=== PATIENT | female | born 1965 | race Caucasian/White ===

== ENCOUNTER 2016-07-28 12:30 | Day surgery (SDC) | payer OTHER ==
[2016-07-26 09:56] VITALS: BMI 32.9
[~2016-07-28 12:30] MED LIST: LACTATED RINGERS 1,000 ML IV SCH; LIDOCAINE 1% 20 ML VIAL (10MG/ML) FOR IV START INTRADERMA PRN
[2016-07-28 12:57] VITALS: TEMP 97.5
[2016-07-28] MEDS ORDERED: fentaNYL (PF) 50 MCG/ML 2 ML AMP ONE (13:24)
[2016-07-28] MEDS ORDERED: MIDAZOLAM 2 MG/2 ML VIAL ONE (13:24)
[2016-07-28] MEDS ORDERED: PROPOFOL 10 MG/ML 20 ML VIAL IV ONE (13:24)
[2016-07-28 13:42] VITALS: RESP 18
--- NOTE | 2016-07-28 13:43 | P.PCN ---
Date of Procedure: 07/28/16 Procedure(s) Performed: BRIEF HISTORY: Patient is a 51-year-old, pleasant, white female, scheduled for an upper endoscopy as a part of evaluation of epigastric pain, worsening heartburn, nausea and vomiting for the last 6 months duration. She is on Prilosec 40 mg daily and despite which remains symptomatic. She is hence scheduled for an upper endoscopy to evaluate further. Her last upper endoscopy was 3 years ago and was noted to have short segment Ríos's esophagus. PROCEDURE PERFORMED: Esophagogastroduodenoscopy with biopsy. PREOPERATIVE DIAGNOSIS: Severe epigastric pain and heartburn. IV sedation per anesthesia. PROCEDURE: After informed consent was obtained, the patient was brought into the endoscopy unit. IV sedation was administered by Anesthesia under continuous monitoring. Initially the Olympus GIF-140 video endoscope was inserted into the mouth. Esophagus intubated without any difficulty. It was gradually advanced into the stomach and duodenum and carefully examined. The bulb and the second part of the duodenum appeared normal. The scope at this time was withdrawn to the stomach, adequately insufflated with air, and upon careful examination, mucosa of the antrum, had mild gastritis and this was biopsied. The body, cardia and the fundus appeared normal. The scope was then withdrawn into the esophagus. The GE junction was located at 39 cm from the incisors. There were 2 small tongues of Ríos's appearing mucosa just proximal to the GE junction and this was biopsied. The esophagus appeared normal. There were no erosions or ulcerations seen and the patient tolerated the procedure well. IMPRESSION: 1. Short segment Ríos's esophagus but no evidence of esophagitis.. 2. Mild antral gastritis. RECOMMENDATIONS: The findings of this examination were discussed with the patient as well as a family. She was advised to follow with the biopsy results. She'll be seen in the office in one to 2 weeks. In the meantime she will continue with Prilosec 40 mg daily and follow antireflux measures..
[2016-07-28 13:58] VITALS: BP 99/70; PULSE 65
== END 2016-07-28 14:12 | disposition home or self-care (01) ==
LOC: ORWHC2ENDO 12:30
PROVIDERS: ATTEND Internal Medicine Gastroenterology
DX: K21.0 Gastro-esophageal reflux disease with esophagitis (principal); K29.50 Unspecified chronic gastritis without bleeding; J45.909 Unspecified asthma, uncomplicated; F39 Unspecified mood [affective] disorder; Z79.51 Long term (current) use of inhaled steroids; Z79.899 Other long term (current) drug therapy; Z90.710 Acquired absence of both cervix and uterus; Z88.6 Allergy status to analgesic agent
CPT/HCPCS: 88305; 88342; 43239; J2250; J3010; J2704

== ENCOUNTER → 2016-08-09 | Outpatient (CLI) | payer OTHER ==
[2016-08-09 11:32] LABS: Basophils # (A) 0.1 k/uL (0-0.2); Basophils % (A) 1 %; CH 30.3; CHCM 32.8; Eosinophils # (A) 0.1 k/uL (0-0.7); Eosinophils % (A) 2 %; HCT 39.9 % (34.0-46.0); HDW 2.12; HGB 13.1 gm/dL (11.4-16.0); Luc # (Auto) 0.11; Luc % (Auto) 2; Lymphocytes # (A) 1.7 k/uL (1.0-4.8); Lymphocytes % (A) 31 %; MCH 30.4 pg (25.0-35.0); MCHC 32.8 g/dL (31.0-37.0); MCV 92.8 fL (80.0-100.0); Mean Platelet Volume 6.9; Monocytes # (A) 0.5 k/uL (0-1.0); Monocytes % (A) 9 %; Neutrophils # (A) 3.1 k/uL (1.3-7.7); Neutrophils % (A) 55 %; RDW 14.1 % (11.5-15.5); WBC 5.6 k/uL (3.8-10.6)
[2016-08-09 11:54] LABS: C Reactive Protein <5.0 mg/L (<10.0)
[2016-08-09 11:57] LABS: Rheumatoid Factor, Qnt <9 IU/mL (<12)
[2016-08-09 14:32] LABS: Erythrocyte Sedimentation Rate 5 mm/hr (0-20)
[2016-08-10 13:18] LABS: HLA B27 NEGATIVE; HLA B27 Comment SEEBELOW
== END | disposition home or self-care (01) ==
LOC: LABWHC1 10:57
PROVIDERS: ATTEND Podiatrist
DX: F31.13 Bipolar disorder, current episode manic without psychotic features, severe (principal); M06.9 Rheumatoid arthritis, unspecified; Z51.81 Encounter for therapeutic drug level monitoring; Z79.899 Other long term (current) drug therapy
CPT/HCPCS: 36415; 80164; 84550; 85025; 85652; 86038; 86140; 86431; 86812

== ENCOUNTER 2016-11-11 14:05 | Emergency (ER) | payer OTHER ==
[2016-11-11 14:19] VITALS: BP 120/86; PULSE 105; RESP 18; TEMP 98
--- NOTE | 2016-11-11 14:34 | ED ---
ENT HPI - General Chief complaint: Dental/Oral Stated complaint: Dental Pain Time Seen by Provider: 11/11/16 14:15 Source: patient Mode of arrival: ambulatory - History of Present Illness Initial comments: 51-year-old female patient presents to emergency Department reporting upper, frontal dental pain. Patient states that she has multiple broken teeth, and cavities to the front five teeth however states that her dentist will not pull them until she is evaluated by a neurologist and is clear of a staph infection in her abdomen. Patient states that she has been having severe pain that radiates up into her face, states that she has been taking Tylenol and Motrin consistently without relief of pain. Patient states that she has to establish with a new neurologist to be ruled out for MS, and has to have a follow-up appointment with her doctor,before she can even see a dentist again. Patient states her last dental appointment was 5 months ago when they told her she needed to have the teeth removed but would have to have his appointments first. Patient states that she did take Ultram from a friend and this did help her pain significantly. Patient denies any fever, chills, facial swelling, headache , neck pain, nausea, or vomiting. She denies any dizziness or weakness. Denies any other physical symptoms or concerns. - Related Data Home Medications Medication Instructions Recorded Confirmed Albuterol Inhaler [Ventolin Hfa 1 - 2 puff INHALATION Q6HR PRN 07/26/16 07/26/16 Inhaler] Albuterol Nebulized [Ventolin 2.5 mg INHALATION Q6H PRN 07/26/16 07/28/16 Nebulized] Cetirizine HCl 10 mg PO DAILY 07/26/16 07/26/16 Divalproex [Depakote] 250 mg PO DAILY 07/26/16 07/26/16 Divalproex [Depakote] 500 mg PO HS 07/26/16 07/28/16 Fluticasone/Salmeterol [Advair 1 inhalation PO BID PRN 07/26/16 07/28/16 100-50 Diskus] Omeprazole 40 mg PO DAILY 07/26/16 07/28/16 Sertraline [Zoloft] 50 mg PO DAILY 07/26/16 07/28/16 clonazePAM [KlonoPIN] 0.25 mg PO BID 07/26/16 07/26/16 Previous Rx's Medication Instructions Recorded Penicillin V Potassium [Pen Vee K] 500 mg PO QID #40 tab 11/11/16 traMADol HCl [Ultram] 50 mg PO Q6H PRN #28 tab 11/11/16 Allergies Allergy/AdvReac Type Severity Reaction Status Date / Time aspirin Allergy Nausea & Verified 07/28/16 12:49 Vomiting Review of Systems ROS Statement: Those systems with pertinent positive or pertinent negative responses have been documented in the HPI. ROS Other: All systems not noted in ROS Statement are negative. Past Medical History Past Medical History: Asthma, COPD, GERD/Reflux, Osteoarthritis (OA), Rheumatoid Arthritis (RA) Additional Past Medical History / Comment(s): ABDOMINAL PAIN, carpal tunnel both hands History of Any Multi-Drug Resistant Organisms: None Reported Past Surgical History: Hysterectomy, Tubal Ligation Additional Past Surgical History / Comment(s): tumor 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 Past Anesthesia/Blood Transfusion Reactions: No Reported Reaction Past Psychological History: Anxiety, Bipolar, Depression, Panic Disorder Smoking Status: Never smoker Past Alcohol Use History: None Reported Past Drug Use History: None Reported - Past Family History Mother Family Medical History: Cancer General Exam General appearance: alert, in no apparent distress Head exam: Present: atraumatic, normocephalic, normal inspection ENT exam: Present: normal exam, mucous membranes moist, other (Patient has broken teeth #7, 8, 9, 10 with significant and extensive dental caries. No gingival swelling, abscess, or ulcers noted. There are is however gingival erythema present.) Neck exam: Present: normal inspection, full ROM. Absent: tenderness, meningismus, lymphadenopathy Respiratory exam: Present: normal lung sounds bilaterally. Absent: respiratory distress, wheezes, rales, rhonchi, stridor Cardiovascular Exam: Present: regular rate, normal rhythm, normal heart sounds. Absent: systolic murmur, diastolic murmur, rubs, gallop, clicks Neurological exam: Present: alert, oriented X3, CN II-XII intact Psychiatric exam: Present: normal affect, normal mood Skin exam: Present: warm, dry, intact, normal color. Absent: rash Course Vital Signs 11/11/16 14:15 Temperature 98 F Pulse Rate 105 H Respiratory 18 Rate Blood Pressure 120/86 O2 Sat by Pulse 99 Oximetry Medical Decision Making - Medical Decision Making 51-year-old female patient presented to emergency department today for evaluation of frontal upper dental pain. Patient has been told that she is to have the teeth pulled however has they have clearance from her physicians prior to this. Patient will be given a prescription for penicillin as well as Ultram for pain control. Patient was informed that she'll have to obtain any further pain medications from her primary care physician. The patient instructed to follow up with a dentist as soon as possible. She is instructed to return for any new, worsening, or concerning symptoms. Patient verbalizes understanding and agrees with this plan. Disposition Clinical Impression: Fractured tooth, Toothache Disposition: HOME SELF-CARE Condition: Good Instructions: Dental Caries (ED), Toothache (ED) Prescriptions: Penicillin V Potassium [Pen Vee K] 500 mg PO QID #40 tab traMADol HCl [Ultram] 50 mg PO Q6H PRN #28 tab PRN Reason: Pain Referrals: None,Stated [Primary Care Provider] - 1-2 days Time of Disposition: 14:34
== END 2016-11-11 14:41 | disposition home or self-care (01) ==
LOC: EC 14:05
DX: S02.5XXA Fracture of tooth (traumatic), initial encounter for closed fracture (principal); K02.9 Dental caries, unspecified; J45.909 Unspecified asthma, uncomplicated; K21.9 Gastro-esophageal reflux disease without esophagitis; F31.9 Bipolar disorder, unspecified; F41.9 Anxiety disorder, unspecified; Z79.899 Other long term (current) drug therapy; Z88.6 Allergy status to analgesic agent; X58.XXXA Exposure to other specified factors, initial encounter
CPT/HCPCS: 99282

== ENCOUNTER 2017-02-21 20:17 | Emergency (ER) | payer OTHER ==
[2017-02-21 20:22] VITALS: TEMP 98
[2017-02-21] MEDS ORDERED: ONDANSETRON 4 MG/2 ML VIAL IVP STA (21:01)
[2017-02-21] MEDS ORDERED: HYDROmorphone 0.5 MG/0.5 ML SYRINGE IVP STA (21:01)
[2017-02-21] MEDS ORDERED: SODIUM CHLORIDE 0.9% 1,000 ML IV STA (21:01)
[2017-02-21] MEDS ORDERED: PANTOPRAZOLE 40 MG/10 ML VIAL IVP STA (21:01)
--- NOTE | 2017-02-21 21:05 | ED ---
General Adult HPI - General Chief complaint: Back Pain/Injury Stated complaint: back pain,kidney pain Time Seen by Provider: 02/21/17 20:41 Source: patient, family, RN notes reviewed, old records reviewed Mode of arrival: wheelchair Limitations: no limitations - History of Present Illness Initial comments: Plain history of present illness a 51-year-old female with a complaint of chronic pain for over a year lower back mainly on the left side radiating around toward the right side. She also reports frequent urinations and constant diarrhea. - Related Data Home Medications Medication Instructions Recorded Confirmed Divalproex [Depakote] 250 mg PO BID 07/26/16 02/21/17 Divalproex [Depakote] 500 mg PO HS 07/26/16 02/21/17 Omeprazole 40 mg PO BID 07/26/16 02/21/17 Sertraline [Zoloft] 50 mg PO DAILY 07/26/16 02/21/17 Previous Rx's Medication Instructions Recorded Hydrocodone/Acetaminophen [[place] 1 each PO Q6HR PRN #10 tab 02/21/17 5-325] methylPREDNISolone Dose Pack 4 mg PO DIRECTED #21 package 02/21/17 [Medrol Dose Pack] Allergies Allergy/AdvReac Type Severity Reaction Status Date / Time aspirin AdvReac Nausea & Verified 02/21/17 21:09 Vomiting ibuprofen [From Motrin] AdvReac Nausea & Verified 02/21/17 21:09 Vomiting Review of Systems ROS Statement: Those systems with pertinent positive or pertinent negative responses have been documented in the HPI. You have systems chronic neck discomfort chronic back pain. History of COPD GERD, arthritis. All systems reviewed. 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 The patient's family history mother had cancer of unknown type. She has ALLERGIES to nonsteroidal anti-inflammatories. Nonsmoker nondrinker. ROS Other: All systems not noted in ROS Statement are negative. Past Medical History Past Medical History: Asthma, COPD, GERD/Reflux, Osteoarthritis (OA), Rheumatoid Arthritis (RA) Additional Past Medical History / Comment(s): ABDOMINAL PAIN, carpal tunnel both hands History of Any Multi-Drug Resistant Organisms: None Reported Past Surgical History: Hysterectomy, Tubal Ligation Additional Past Surgical History / Comment(s): tumor 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 Past Anesthesia/Blood Transfusion Reactions: No Reported Reaction Past Psychological History: Anxiety, Bipolar, Depression, Panic Disorder Smoking Status: Never smoker Past Alcohol Use History: None Reported Past Drug Use History: None Reported - Past Family History Mother Family Medical History: Cancer General Exam - General Exam Comments Initial Comments: General: The patient is awake and alert, planes of pain with movement. Discomfort left lower back radiating around toward the left lower quadrant. This is recurrent getting progressively worse over the week but it started one year ago. Vital signs temperature 98.0 pulse 88 respiratory rate 16 pulse ox on percent room air blood pressure 136/84 Eye: Pupils are equal, round and reactive to light, extra-ocular movements are intact ; there is normal conjunctiva bilaterally. No signs of icterus. Ears, nose, mouth and throat: There are moist mucous membranes and no oral lesions. Neck: Neck pain Cardiovascular: There is a regular rate and rhythm. No murmur, rub or gallop is appreciated. Respiratory: Lungs are clear to auscultation, respirations are non-labored, breath sounds are equal. No wheezes, stridor, rales, or rhonchi. Gastrointestinal: Under guarding left lower quadrant. Active bowel sounds.. Back: Chronic low back pain left buttock area. No rashes noted early shingles discussed. Musculoskeletal: Chronic low back pain with radiation to the legs.. Neurological: No complaint of any neuro deficits. Skin: Skin is warm and dry and no rashes or lesions are noted. Psychiatric: Cooperative, appropriate mood & affect, normal judgment. Limitations: no limitations Course Vital Signs 02/21/17 02/21/17 02/21/17 20:19 22:40 23:38 Temperature 98 F Pulse Rate 88 83 88 Respiratory 16 18 18 Rate Blood Pressure 136/84 124/86 137/100 O2 Sat by Pulse 100 96 97 Oximetry Medical Decision Making - Medical Decision Making Medical decision making; white count 9.1 hemoglobin 13.8 hematocrit of 40.8. Potassium 4.3 BUN 18 creatinine 1.0 GFR 59. Glucose 85. Plasma lactic acid normal at 0.7 urine clean no signs of infection. X-ray of the abdomen was done and reviewed by radiologist his impression is there is no sign of intestinal obstruction or pneumoperitoneum. Fecal pattern is normal. Lung bases are clear. There are no pathologic calcifications over the kidneys. There is mild lumbar level scoliosis. Impression nonacute abdomen. No change. As read by Dr. Mcgovern CT the abdomen and pelvis is done without IV contrast. And reviewed by radiologist his impression is there is no adrenal mass. Kidneys have normal size and contour. There is no hydronephrosis. There is no retroperitoneal adenopathy. There is no ascites. Urinary bladder appears normal. Hysterectomy as noted. There is no evidence of a pelvic mass. No bony destructive process. Appendix appears normal. No intestinal wall thickening. No dilated loops. Final impression is negative CT of the abdomen and pelvis. No adverse change compared to old exam. There is clearing of the subcutaneous fluid collection over the anterior abdominal wall compared to old exam. There is a mild degenerative first-degree L4-L5 spondylolisthesis. There is a mild relative spinal stenosis at L4-L5. Dr. Mcgovern We did discuss possibility of discitis causing discomfort in the L4-L5 region patient will be placed on a Medrol Dosepak and 2 days pain medication. She cannot take aspirin or ibuprofen as it causes adverse reaction. She'll be advised to call follow-up with family physician. Return emergency room as needed. - Lab Data Result diagrams: 02/21/17 21:28 02/21/17 21:28 Lab Results 02/21/17 02/21/17 02/21/17 Range/Units 21:28 21:28 21:28 WBC 9.1 (3.8-10.6) k/uL RBC 4.64 (3.80-5.40) m/uL Hgb 13.8 (11.4-16.0) gm/dL Hct 40.8 (34.0-46.0) % MCV 88.1 (80.0-100.0) fL MCH 29.7 (25.0-35.0) pg MCHC 33.7 (31.0-37.0) g/dL RDW 12.5 (11.5-15.5) % Plt Count 347 (150-450) k/uL Neutrophils % 58 % Lymphocytes % 31 % Monocytes % 6 % Eosinophils % 2 % Basophils % 1 % Neutrophils # 5.3 (1.3-7.7) k/uL Lymphocytes # 2.8 (1.0-4.8) k/uL Monocytes # 0.5 (0-1.0) k/uL Eosinophils # 0.2 (0-0.7) k/uL Basophils # 0.1 (0-0.2) k/uL Sodium 138 (137-145) mmol/L Potassium 4.3 (3.5-5.1) mmol/L Chloride 103 (98-107) mmol/L Carbon Dioxide 27 (22-30) mmol/L Anion Gap 8 mmol/L BUN 18 H (7-17) mg/dL Creatinine 1.00 (0.52-1.04) mg/dL Est GFR (MDRD) Af Amer >60 (>60 ml/min/1.73 sqM) Est GFR (MDRD) Non-Af 59 (>60 ml/min/1.73 sqM) Glucose 85 (74-99) mg/dL Plasma Lactic Acid Cristiano 0.7 (0.7-2.0) mmol/L Calcium 9.8 (8.4-10.2) mg/dL Total Bilirubin 0.2 (0.2-1.3) mg/dL AST 21 (14-36) U/L ALT 35 (9-52) U/L Alkaline Phosphatase 78 (38-126) U/L Total Protein 7.1 (6.3-8.2) g/dL Albumin 4.3 (3.5-5.0) g/dL Amylase 48 (30-110) U/L Lipase 144 (23-300) U/L Urine Color Urine Appearance (Clear) Urine pH (5.0-8.0) Ur Specific [place] (1.001-1.035) Urine Protein (Negative) Urine Glucose (UA) (Negative) Urine Ketones (Negative) Urine Blood (Negative) Urine Nitrite (Negative) Urine Bilirubin (Negative) Urine Urobilinogen (<2.0) mg/dL Ur Leukocyte Esterase (Negative) 02/21/17 Range/Units 21:28 WBC (3.8-10.6) k/uL RBC (3.80-5.40) m/uL Hgb (11.4-16.0) gm/dL Hct (34.0-46.0) % MCV (80.0-100.0) fL MCH (25.0-35.0) pg MCHC (31.0-37.0) g/dL RDW (11.5-15.5) % Plt Count (150-450) k/uL Neutrophils % % Lymphocytes % % Monocytes % % Eosinophils % % Basophils % % Neutrophils # (1.3-7.7) k/uL Lymphocytes # (1.0-4.8) k/uL Monocytes # (0-1.0) k/uL Eosinophils # (0-0.7) k/uL Basophils # (0-0.2) k/uL Sodium (137-145) mmol/L Potassium (3.5-5.1) mmol/L Chloride (98-107) mmol/L Carbon Dioxide (22-30) mmol/L Anion Gap mmol/L BUN (7-17) mg/dL Creatinine (0.52-1.04) mg/dL Est GFR (MDRD) Af Amer (>60 ml/min/1.73 sqM) Est GFR (MDRD) Non-Af (>60 ml/min/1.73 sqM) Glucose (74-99) mg/dL Plasma Lactic Acid Cristiano (0.7-2.0) mmol/L Calcium (8.4-10.2) mg/dL Total Bilirubin (0.2-1.3) mg/dL AST (14-36) U/L ALT (9-52) U/L Alkaline Phosphatase (38-126) U/L Total Protein (6.3-8.2) g/dL Albumin (3.5-5.0) g/dL Amylase (30-110) U/L Lipase (23-300) U/L Urine Color Yellow Urine Appearance Clear (Clear) Urine pH 5.5 (5.0-8.0) Ur Specific [place] 1.022 (1.001-1.035) Urine Protein Negative (Negative) Urine Glucose (UA) Negative (Negative) Urine Ketones Negative (Negative) Urine Blood Negative (Negative) Urine Nitrite Negative (Negative) Urine Bilirubin Negative (Negative) Urine Urobilinogen 2.0 (<2.0) mg/dL Ur Leukocyte Esterase Negative (Negative) Disposition Clinical Impression: Lumbar radiculopathy, acute Disposition: HOME SELF-CARE Condition: Stable Instructions: Lumbar Radiculopathy (ED) Additional Instructions: Medications as directed. Follow-up with your family physician. Return emergency room as needed. Prescriptions: Hydrocodone/Acetaminophen [[place] 5-325] 1 each PO Q6HR PRN #10 tab PRN Reason: Pain methylPREDNISolone Dose Pack [Medrol Dose Pack] 4 mg PO DIRECTED #21 package Referrals: None,Stated [Primary Care Provider] - 1-2 days Time of Disposition: 00:01
[2017-02-21 21:49] LABS: Appearance,Urine Clear (Clear); Basophils # (A) 0.1 k/uL (0-0.2); Basophils % (A) 1 %; Bilirubin,Urine Negative (Negative); CH 29.9; CHCM 34.1; Eosinophils # (A) 0.2 k/uL (0-0.7); Eosinophils % (A) 2 %; Glucose,Urine (UA) Negative (Negative); HCT 40.8 % (34.0-46.0); HDW 2.32; HGB 13.8 gm/dL (11.4-16.0); Ketones,Urine Negative (Negative); Leukocyte Esterase,Urine Negative (Negative); Luc # (Auto) 0.21; Luc % (Auto) 2; Lymphocytes # (A) 2.8 k/uL (1.0-4.8); Lymphocytes % (A) 31 %; MCH 29.7 pg (25.0-35.0); MCHC 33.7 g/dL (31.0-37.0); MCV 88.1 fL (80.0-100.0); Mean Platelet Volume 7.3; Monocytes # (A) 0.5 k/uL (0-1.0); Monocytes % (A) 6 %; Neutrophils # (A) 5.3 k/uL (1.3-7.7); Neutrophils % (A) 58 %; Nitrite,Urine Negative (Negative); PH, Urine 5.5 (5.0-8.0); Protein,Urine Negative (Negative); RBC 4.64 m/uL (3.80-5.40); RDW 12.5 % (11.5-15.5); Specific Gravity,Urine 1.022 (1.001-1.035); UA Billing (MACRO vs. MICRO) CHEM; WBC 9.1 k/uL (3.8-10.6); WBC (Perox) 9.07
[2017-02-21 21:58] LABS: ALT 35 U/L (9-52); AST 21 U/L (14-36); Alkaline Phosphatase 78 U/L (38-126); Amylase 48 U/L (30-110); Anion Gap 8 mmol/L; Blood Urea Nitrogen 18 mg/dL (7-17); Calcium 9.8 mg/dL (8.4-10.2); Carbon Dioxide 27 mmol/L (22-30); Chloride 103 mmol/L (98-107); Glucose 85 mg/dL (74-99); Non-African American GFR(MDRD) 59 (>60 ml/min/1.73 sqM); Potassium 4.3 mmol/L (3.5-5.1); Sodium 138 mmol/L (137-145); Total Bilirubin 0.2 mg/dL (0.2-1.3); Total Protein 7.1 g/dL (6.3-8.2)
--- NOTE | 2017-02-21 22:11 | XR ---
EXAMINATION TYPE: XR abdomen 2V DATE OF EXAM: 02/21/2017 COMPARISON: 01/07/2014 HISTORY: Abdominal pain back pain TECHNIQUE: 2 views FINDINGS: There is no sign of intestinal obstruction or pneumoperitoneum. Fecal pattern is normal. Anna ng bases are clear. There are no pathologic calcifications over the kidneys. There is mild lumbar lev oscoliosis. IMPRESSION: Nonacute abdomen. No change.
[2017-02-21 22:47] VITALS: RESP 18
--- NOTE | 2017-02-21 23:11 | CT ---
EXAMINATION TYPE: CT abdomen pelvis wo con DATE OF EXAM: 02/21/2017 COMPARISON: 01/16/2014 HISTORY: Left Flank pain CT DLP: 151.10 mGycm Automated exposure control for dose reduction was used. TECHNIQUE: Helical acquisition of images was performed from the lung bases through the pelvis. FINDINGS: Lung bases are clear. There is no pleural effusion. Liver spleen pancreas gallbladder appear normal. Bile ducts are not dilated. There is no adrenal mass. Kidneys have normal size and contour. There is no hydronephrosis. There is no retroperitoneal adenopathy. There is no ascites. Urinary bladder appears normal. Hysterectomy is n oted. There is no evidence of a pelvic mass. I see no bony destructive process. Appendix appears norm al. I see no intestinal wall thickening. There are no dilated loops. IMPRESSION: NEGATIVE CT SCAN OF THE ABDOMEN AND PELVIS. NO ADVERSE CHANGE COMPARED TO OLD EXAM. THERE IS CLEARING OF THE SUBCUTANEOUS FLUID COLLECTION OVER THE ANTERIOR ABDOMINAL WALL COMPARED TO OLD EXAM. THERE IS A MILD DEGENERATIVE FIRST DEGREE L4-5 SPONDYLOLISTHESIS. THERE IS A MILD RELATIVE SPINAL STENOSIS AT L4-5.
[2017-02-21] MEDS ORDERED: HYDROcodone/APAP 5-325MG 1 EACH TAB PO STA (23:49)
[2017-02-21] MEDS ORDERED: DEXAMETHASONE SOD PHOSPHATE 4 MG/ML 1 ML VIAL IV STA (23:50)
[2017-02-22 00:34] VITALS: BP 116/79; PULSE 96
== END 2017-02-22 00:45 | disposition home or self-care (01) ==
LOC: EC 20:17
DX: M54.16 Radiculopathy, lumbar region (principal); R35.0 Frequency of micturition; R19.7 Diarrhea, unspecified; K21.9 Gastro-esophageal reflux disease without esophagitis; F41.0 Panic disorder [episodic paroxysmal anxiety]; F32.9 Major depressive disorder, single episode, unspecified; Z79.899 Other long term (current) drug therapy; Z88.6 Allergy status to analgesic agent
CPT/HCPCS: 99284; 96374; 96375 ×3; 36415; 80053; 82150; 83605; 83690; 85025; 81003; 87086; 74020; 74176; 96361 ×3; J1100; J2405; C9113; J1170

== ENCOUNTER 2017-03-30 15:05 | Emergency (ER) | payer OTHER ==
[2017-03-30 15:14] VITALS: BP 169/103; PULSE 67; RESP 20; TEMP 98.4
--- NOTE | 2017-03-30 16:06 | ED ---
ENT HPI - General Chief complaint: Dental/Oral Stated complaint: Dental pain Time Seen by Provider: 03/30/17 15:17 Source: patient Mode of arrival: ambulatory Limitations: no limitations - History of Present Illness Initial comments: 51-year-old female patient presents to the emergency department today for complaints of dental and back pain. Patient states that she has chronic low back pain however over the last 2 days the pain has been increasing. She denies any injuries causing the increase in her pain. She states that occasionally she does have flareups of her chronic back issues. She states that the pain is radiating down her left leg. She states that she has increased pain with walking. She denies any loss of bowel or bladder control. States that she does have some tingling to the lower leg that is chronic for her. She denies any saddle anesthesia. She is reporting also front dental pain , states is gone on for quite some time. She states she has multiple broken teeth. She states that she has to be cleared by her primary care physician to go to the dentist because she has history of MRSA. She states that she does have an appointment with the primary care physician at the beginning of April. She denies any fever or chills. Patient denies any recent rash, shortness breath, chest pain, abdominal pain, nausea, vomiting, diarrhea, constipation, back pain, numbness, tingling, dizziness, weakness, hematuria, dysuria, urinary urgency, urinary frequency, headache, visual changes, or any other complaints. - Related Data Previous Rx's Medication Instructions Recorded Acetaminophen-Codeine 300-30mg 1 tab PO Q6H PRN #12 tablet 03/30/17 [Tylenol #3] Penicillin V Potassium [Pen Vee K] 500 mg PO Q6H #40 tablet 03/30/17 Allergies Allergy/AdvReac Type Severity Reaction Status Date / Time aspirin AdvReac Nausea & Verified 03/30/17 15:28 Vomiting ibuprofen [From Motrin] AdvReac Nausea & Verified 03/30/17 15:28 Vomiting Review of Systems ROS Statement: Those systems with pertinent positive or pertinent negative responses have been documented in the HPI. ROS Other: All systems not noted in ROS Statement are negative. Past Medical History Past Medical History: Asthma, COPD, GERD/Reflux, Osteoarthritis (OA), Rheumatoid Arthritis (RA) Additional Past Medical History / Comment(s): ABDOMINAL PAIN, carpal tunnel both hands History of Any Multi-Drug Resistant Organisms: None Reported Past Surgical History: Hysterectomy, Tubal Ligation Additional Past Surgical History / Comment(s): tumor 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 Past Anesthesia/Blood Transfusion Reactions: No Reported Reaction Past Psychological History: Anxiety, Bipolar, Depression, Panic Disorder Smoking Status: Never smoker Past Alcohol Use History: None Reported Past Drug Use History: None Reported - Past Family History Mother Family Medical History: Cancer General Exam Limitations: no limitations General appearance: alert, in no apparent distress, other (Physical well- developed, well-nourished adult female patient in no acute distress. Vital signs upon presentation are temperature 98.4F, pulse 67, respirations 20, blood pressure 169/103, pulse ox 98% on room air.) Eye exam: Present: normal appearance, PERRL, EOMI. Absent: scleral icterus, conjunctival injection, periorbital swelling ENT exam: Present: normal exam, normal oropharynx, mucous membranes moist, other (There are multiple fractured teeth in the front, possibly exposed nerve root. There is minimal surrounding gingival erythema. No evidence of drainable abscess.) Respiratory exam: Present: normal lung sounds bilaterally. Absent: respiratory distress, wheezes, rales, rhonchi, stridor Cardiovascular Exam: Present: regular rate, normal rhythm, normal heart sounds. Absent: systolic murmur, diastolic murmur, rubs, gallop, clicks Extremities exam: Present: other (Strength in all 4 extremities is 5/5.) Back exam: Present: normal inspection. Absent: paraspinal tenderness, vertebral tenderness Neurological exam: Present: alert, oriented X3, CN II-XII intact Psychiatric exam: Present: normal affect, normal mood, other (Tearful during exam) Skin exam: Present: warm, dry, intact, normal color. Absent: rash Course Vital Signs 03/30/17 15:12 Temperature 98.4 F Pulse Rate 67 Respiratory 20 Rate Blood Pressure 169/103 O2 Sat by Pulse 98 Oximetry Medical Decision Making - Medical Decision Making 51-year-old female patient presented to the emergency department today for evaluation of lower back pain and dental pain. Physical examination did reveal multiple fractured teeth in very poor dentition. There is minimal surrounding gingival erythema however no evidence of drainable abscess. Examination of the back is unremarkable. Patient is nontender in the lower back area. She has good strength in her lower extremities. She denies any loss of bowel or bladder control. Denies any new numbness or tingling. Denies any saddle anesthesia. She'll be discharged home with a prescription for pain medication as well as antibiotics for possible dental infection. She is instructed to follow-up with a dentist and as possible. She is instructed to keep her appointment with her primary care physician. She is instructed to return here immediately for any new, worsening, or concerning symptoms. She verbalizes understanding and agrees with this plan. Disposition Clinical Impression: Pain, dental, Chronic back pain Disposition: HOME SELF-CARE Condition: Good Instructions: Dental Caries (ED), Toothache (ED), Chronic Back Pain (ED) Additional Instructions: Take medications as directed. Follow-up with your primary care physician for recheck in 1-2 days. Follow-up with dentistry as soon as possible. Return here immediately for any new, worsening, or concerning symptoms. Prescriptions: Acetaminophen-Codeine 300-30mg [Tylenol #3] 1 tab PO Q6H PRN #12 tablet PRN Reason: Pain Penicillin V Potassium [Pen Vee K] 500 mg PO Q6H #40 tablet Referrals: Raysa England DO [Primary Care Provider] - 1-2 days Time of Disposition: 16:05
== END 2017-03-30 16:13 | disposition home or self-care (01) ==
LOC: EC 15:05
DX: S02.5XXA Fracture of tooth (traumatic), initial encounter for closed fracture (principal); G89.29 Other chronic pain; M54.5 Low back pain; M79.605 Pain in left leg; R20.2 Paresthesia of skin; Z88.6 Allergy status to analgesic agent; Z86.14 Personal history of Methicillin resistant Staphylococcus aureus infection; X58.XXXA Exposure to other specified factors, initial encounter
CPT/HCPCS: 99282

== ENCOUNTER 2017-06-19 22:30 | Observation (INO) | payer OTHER ==
[2017-06-19] MEDS ORDERED: ASPIRIN 81 MG PO STA (22:58)
[2017-06-19] MEDS ORDERED: NITROGLYCERIN SL TABS 0.4 MG TAB SUBLINGUAL STA (22:58)
[2017-06-19 23:13] LABS: Basophils % (A) 1 %; Eosinophils # (A) 0.1 k/uL (0-0.7); Eosinophils % (A) 1 %; HCT 39.9 % (34.0-46.0); HGB 13.3 gm/dL (11.4-16.0); Lymphocytes % (A) 21 %; MCH 28.5 pg (25.0-35.0); MCHC 33.2 g/dL (31.0-37.0); MCV 85.9 fL (80.0-100.0); Monocytes # (A) 0.6 k/uL (0-1.0); Monocytes % (A) 7 %; Neutrophils # (A) 6.7 k/uL (1.3-7.7); Neutrophils % (A) 70 %; Platelet Count 298 k/uL (150-450); RBC 4.65 m/uL (3.80-5.40); RDW 13.3 % (11.5-15.5); WBC 9.5 k/uL (3.8-10.6)
[2017-06-19 23:22] LABS: D-Dimer 0.4 mg/L FEU (<0.60)
[2017-06-19 23:28] LABS: ALT 47 U/L (9-52); AST 31 U/L (14-36); Albumin 4.2 g/dL (3.5-5.0); Alkaline Phosphatase 99 U/L (38-126); Anion Gap 10 mmol/L; Blood Urea Nitrogen 13 mg/dL (7-17); Calcium 9.9 mg/dL (8.4-10.2); Carbon Dioxide 28 mmol/L (22-30); Chloride 100 mmol/L (98-107); Glucose 106 mg/dL (74-99); Magnesium 1.9 mg/dL (1.6-2.3); Partial Thromboplastin Time 22.8 sec (22.0-30.0); Potassium 4.1 mmol/L (3.5-5.1); Sodium 138 mmol/L (137-145); Total Bilirubin 0.4 mg/dL (0.2-1.3); Total Protein 7.1 g/dL (6.3-8.2)
[2017-06-19 23:37] LABS: Creatine Kinase 86 U/L (30-135)
--- NOTE | 2017-06-19 23:46 | XR ---
EXAMINATION TYPE: XR chest 2V DATE OF EXAM: 06/19/2017 COMPARISON: 12/13/2015 HISTORY: Chest pain TECHNIQUE: Frontal and lateral views of the chest are obtained. FINDINGS: Heart and mediastinum are normal. Lungs are clear. Diaphragm is normal. Bony thorax appear s normal. There are chest leads. IMPRESSION: Normal chest. There is apparent clearing of a mild infiltrate in the left lower lobe com pared to old exam.
[2017-06-19 23:50] LABS: Creatine Kinase MB 0.7 ng/mL (0.0-2.4); Troponin I <0.012 ng/mL (0.000-0.034)
--- NOTE | 2017-06-20 00:12 | ED ---
Chest Pain HPI - General Chief Complaint: Chest Pain Stated Complaint: chest pain Time Seen by Provider: 06/19/17 22:42 Source: patient, RN notes reviewed Mode of arrival: wheelchair Limitations: no limitations - History of Present Illness Initial Comments: This is a 52-year-old female who presents with complaints of chest pain to the left upper chest of service 7 PM tonight. She states was heavy with some tingling and tingling to the left arm. She denies any cough fevers chills nausea vomiting sweats she states she does have anxiety and very anxious about it. She has had cardiac workups in the past she states she is a family history of heart disease but no personal one is a history of reflux as well as anxiety she does not smoke does not drink. He states it was initially 01/09 severity now it's a 10/09. MD Complaint: chest pain - Related Data Home Medications Medication Instructions Recorded Confirmed Cyclobenzaprine [Flexeril] 5 mg PO BID 06/19/17 06/19/17 Desipramine HCl [Norpramin] 50 mg PO DAILY 06/19/17 06/19/17 Lansoprazole [Prevacid] 30 mg PO BID 06/19/17 06/19/17 Oxybutynin Xl [Ditropan Xl] 5 mg PO DAILY 06/19/17 06/19/17 Allergies Allergy/AdvReac Type Severity Reaction Status Date / Time aspirin AdvReac Nausea & Verified 06/19/17 23:18 Vomiting ibuprofen [From Motrin] AdvReac Nausea & Verified 06/19/17 23:18 Vomiting Review of Systems ROS Statement: Those systems with pertinent positive or pertinent negative responses have been documented in the HPI. ROS Other: All systems not noted in ROS Statement are negative. EKG Findings - EKG Results: EKG: interpreted by PAPITO, sinus rhythm (Sinus tachycardia rate of 119 HI interval 172 QRS duration 70 QT since QTC of 312/[address]-T wave changes) Past Medical History Past Medical History: Asthma, COPD, GERD/Reflux, Osteoarthritis (OA), Rheumatoid Arthritis (RA) Additional Past Medical History / Comment(s): ABDOMINAL PAIN, carpal tunnel both hands History of Any Multi-Drug Resistant Organisms: None Reported Past Surgical History: Hysterectomy, Tubal Ligation Additional Past Surgical History / Comment(s): tumor 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 Past Anesthesia/Blood Transfusion Reactions: No Reported Reaction Past Psychological History: Anxiety, Bipolar, Depression, Panic Disorder Smoking Status: Never smoker Past Alcohol Use History: None Reported Past Drug Use History: None Reported - Past Family History Mother Family Medical History: Cancer General Exam - General Exam Comments Initial Comments: This is a well-developed well-nourished awake alert oriented 3 female she is anxious in appearance Limitations: no limitations General appearance: alert, anxious Head exam: Present: atraumatic, normocephalic, normal inspection Eye exam: Present: normal appearance, PERRL, EOMI. Absent: scleral icterus, conjunctival injection, periorbital swelling ENT exam: Present: normal exam, mucous membranes moist Neck exam: Present: normal inspection. Absent: tenderness, meningismus, lymphadenopathy Respiratory exam: Present: normal lung sounds bilaterally. Absent: respiratory distress, wheezes, rales, rhonchi, stridor Cardiovascular Exam: Present: regular rate, normal rhythm, normal heart sounds. Absent: systolic murmur, diastolic murmur, rubs, gallop, clicks GI/Abdominal exam: Present: soft, normal bowel sounds. Absent: distended, tenderness, guarding, rebound, rigid Extremities exam: Present: normal inspection, full ROM, normal capillary refill. Absent: tenderness, pedal edema, joint swelling, calf tenderness Back exam: Present: normal inspection Neurological exam: Present: alert, oriented X3, CN II-XII intact Psychiatric exam: Present: normal affect, normal mood Skin exam: Present: warm, dry, intact, normal color. Absent: rash Course Vital Signs 06/19/17 06/19/17 22:33 22:50 Temperature 98.3 F Pulse Rate 110 H Pulse Rate [ 115 H Bilateral Hospital Medicine Director ] Respiratory 22 Rate Blood Pressure 139/99 O2 Sat by Pulse 99 Oximetry Chest Pain MDM - MDM I did review the imaging and reports no acute findings. I did reevaluate the patient she is having intermittent episodes of left-sided chest discomfort that felt like heaviness is not reproducible no EKG changes are noted patient will be admitted for evaluation of chest pain. She does state that her sister does had gotten out of Hospital and had a blockage in one of her heart vessels. Disposition Clinical Impression: Atypical chest pain, Unstable angina pectoris Disposition: ADMITTED IP TO THIS HOSP Condition: Stable Referrals: Raysa England DO [Primary Care Provider] - 1-2 days
[2017-06-20] MEDS ORDERED: HEPARIN SODIUM,PORCINE 5,000 UNIT/ML 1 ML VIAL IV ONE (00:26)
[2017-06-20] MEDS ORDERED: NITROGLYCERIN SL TABS 0.4 MG TAB SUBLINGUAL PRN (00:26)
[2017-06-20] MEDS ORDERED: SODIUM CHLORIDE 0.9% 1,000 ML IV SCH (00:30)
[2017-06-20] MEDS ORDERED: HEPARIN SOD,PORK IN 0.45% NACL 25,000 UNIT in 0.45% NACL 1 500ML.BAG IV SCH (00:30)
[2017-06-20 01:32] VITALS: BMI 36.5
[2017-06-20] MEDS ORDERED: ACETAMINOPHEN TAB 325 MG TAB PO PRN (01:46)
[2017-06-20] MEDS: NITROGLYCERIN OINT 1 INCH/GM PACKET TOPICAL SCH ×2 (04:41→13:31)
[2017-06-20] MEDS ORDERED: PANTOPRAZOLE 40 MG TABLET PO SCH (07:30)
[2017-06-20 08:04] VITALS: RESP 18; TEMP 98
[2017-06-20 08:22] LABS: Creatine Kinase 63 U/L (30-135)
[2017-06-20 08:36] LABS: Creatine Kinase MB 0.6 ng/mL (0.0-2.4); Troponin I <0.012 ng/mL (0.000-0.034)
[2017-06-20] MEDS ORDERED: OXYBUTYNIN XL 5 MG TAB.ER.24 PO SCH (09:00)
[2017-06-20] MEDS ORDERED: CYCLOBENZAPRINE 5 MG TAB PO SCH (09:00)
[2017-06-20] MEDS ORDERED: DESIPRAMINE 25 MG TAB PO SCH ×2 (09:00→12:29)
[2017-06-20 12:02] LABS: Creatine Kinase 73 U/L (30-135)
[2017-06-20 12:14] LABS: Creatine Kinase MB 0.6 ng/mL (0.0-2.4); Troponin I <0.012 ng/mL (0.000-0.034)
--- NOTE | 2017-06-20 12:15 | CONS ---
CONSULTATION Leona Estes is a 52-year-old lady with underlying history of bipolar disorder and anxiety. She has been admitted to the hospital with complaints of what seems to be discomfort in her chest. She complained of what seems to be more or less a tingling feeling in the left upper chest at 7 pm yesterday. She felt some discomfort in the left arm. Then she had an element of anxiety and then had chest pressure and came into the hospital. After arrival she was symptom-free. She is resting comfortably. Two sets of troponins are normal. EKG is unremarkable. She is not a smoker. Does not have any history of hypertension, diabetes or myocardial infarction. She does have history of bipolar disorder. However, she is pain free at this time. EKG is unremarkable. I am recommending that we will do a stress echo and if this is normal, she can be discharged. PAST MEDICAL HISTORY: History of asthma and COPD, not a smoker, has a questionable osteoarthritis or rheumatoid arthritis. No active treatment. She also has history of tubal ligation, hysterectomy, bipolar disorder. MEDICATIONS: At home include Flexeril, Prevacid, Ditropan and desipramine. PHYSICAL EXAMINATION: Blood pressure is 108/70, pulse rate is 80 per minute, regular. HEENT: Unremarkable. Fundus was not examined by me. Neck is supple. No JVD. I do not hear a carotid bruit. There is no thyromegaly. Heart exam reveals S1, S2 heard normally without a rub, murmur or gallop. Lungs are clear. Abdomen is soft, nontender. Lower extremity with normal pulses, no edema. Central nervous system is normal. EKG revealed sinus mechanism, no acute changes. IMPRESSION: 1. Atypical chest pain. 2. Anxiety. 3. Bipolar disorder. RECOMMENDATION: I am recommending a stress echo and if this is normal, she can be discharged. I discussed my thoughts in detail with the patient. Thank you very much for the consult. MMODL / IJN: [id number] /
--- NOTE | 2017-06-20 12:21 | ECHOS ---
STRESS ECHOCARDIOGRAM INDICATIONS: Chest pain. BASELINE HEART RATE: 105 BASELINE BLOOD PRESSURE: 145/87 MAXIMUM HEART RATE: 143 MAXIMUM BLOOD PRESSURE: 150/68 85% MPHR: 145 100% MPHR: 170 METS: 7.9 MAXIMUM STAGE REACHED: 3 TOTAL EXERCISE TIME: 6:30 CLINICAL INFORMATION: Baseline EKG revealed normal sinus rhythm without significant ST-T changes. Patient walked on a standard [place] protocol for 6-1/2 minutes, achieved a maximum heart rate of 143 beats per minute which is almost 85% of predicted maximal. She developed fatigue and shortness of breath but did not have any angina or arrhythmia. EKG did not reveal any ST-segment changes to indicate ischemia. This is a negative stress test with fair exercise capacity. Baseline echo images revealed normal wall motion and wall thickening of all segments. At peak exercise, there was good augmentation of left ventricular wall motion and wall thickening of all segments suggesting that there is no evidence of stress-induced ischemia. IMPRESSION: 1. By EKG criteria, this is a negative stress test with fair exercise capacity. Patient almost achieved 85% of predicted maximal heart rate. 2. Normal stress echocardiogram. MMODL / IJN: [id number] /
--- NOTE | 2017-06-20 12:25 | P.HPIM ---
History of Present Illness H&P Date: 06/20/17 This is a 52-year-old female with past medical history noted below presented to the hospital with chest discomfort. Patient said that the pain started last night with a tingling sensation in her chest and subsequently was more of a discomfort radiating to her left arm. Patient denies any prior cardiac history. There was no shortness of breath, diaphoresis, or palpitation associated with her symptoms. Her symptoms were nonexertional. In the emergency room, 12-lead EKG showed no acute ischemic changes. Serial troponin 3 sets were negative. D-dimer and chest x-ray were normal. Patient was placed in observation was seen and evaluated by cardiology. She underwent a stress echocardiogram awaiting final report. If her stress echocardiogram is negative patient will be discharged home in a stable condition. Review of Systems Review of system: 14 points review of systems were obtained and were negative except to what were mentioned in the HPI. Past Medical History Past Medical History: Asthma, COPD, GERD/Reflux, Osteoarthritis (OA), Rheumatoid Arthritis (RA) Additional Past Medical History / Comment(s): ABDOMINAL PAIN, carpal tunnel both hands, scolosis History of Any Multi-Drug Resistant Organisms: None Reported Past Surgical History: Hysterectomy, Tubal Ligation Additional Past Surgical History / Comment(s): tumor 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 Past Anesthesia/Blood Transfusion Reactions: No Reported Reaction Smoking Status: Former smoker - Past Family History Mother Family Medical History: Cancer Father Additional Family Medical History / Comment(s): pacer, heart issues Sister(s) Additional Family Medical History / Comment(s): heart blockage Medications and Allergies Home Medications Medication Instructions Recorded Confirmed Type Cyclobenzaprine [Flexeril] 5 mg PO BID 06/19/17 06/20/17 History Desipramine HCl [Norpramin] 50 mg PO DAILY 06/19/17 06/20/17 History Lansoprazole [Prevacid] 30 mg PO BID 06/19/17 06/20/17 History Oxybutynin Xl [Ditropan Xl] 5 mg PO DAILY 06/19/17 06/20/17 History Albuterol Nebulized [Ventolin 2.5 mg INHALATION Q4H PRN 06/20/17 06/20/17 History Nebulized] Beclomethasone Dipropionate [Qvar 2 puff INHALATION BID 06/20/17 06/20/17 History Redihaler] Allergies Allergy/AdvReac Type Severity Reaction Status Date / Time aspirin AdvReac Nausea & Verified 06/20/17 01:19 Vomiting ibuprofen [From Motrin] AdvReac Nausea & Verified 06/20/17 01:19 Vomiting Physical Exam Vitals: Vital Signs Temp Pulse Pulse Pulse Resp BP BP 06/20/17 08:00 98.0 F 84 84 18 100/62 06/20/17 04:00 97.6 F 84 16 96/55 06/20/17 01:53 16 06/20/17 01:19 97.7 F 91 16 137/86 06/20/17 00:00 98.5 F 101 H 18 129/78 06/19/17 22:50 115 H 06/19/17 22:33 98.3 F 110 H 22 139/99 Pulse Ox 06/20/17 08:00 98 06/20/17 04:00 96 06/20/17 01:53 06/20/17 01:19 98 06/20/17 00:00 98 06/19/17 22:50 06/19/17 22:33 99 Intake and Output 06/19/17 06/20/17 06/20/17 22:59 06:59 14:59 Other: Voiding Method Toilet # Voids 1 Weight 83.915 kg 87.6 kg General: The patient is awake and alert, in no distress Eye: there is normal conjunctiva bilaterally. Neck: The neck is supple, there is no JVD. Cardiovascular: Normal S1-S2, no S3-S4, no murmurs. Respiratory: Lungs clear to auscultation bilaterally Gastrointestinal: Abdomen is soft, nontender Musculoskeletal: There is no pedal edema. Neurological:. Speech is normal. Skin: Skin is warm and dry Results CBC & Chem 7: 06/19/17 23:00 06/19/17 23:00 Labs: Abnormal Lab Results - Last 24 Hours (Table) 06/19/17 06/20/17 Range/Units 23:00 06:49 APTT 87.7 H (22.0-30.0) sec Glucose 106 H (74-99) mg/dL Thrombosis Risk Factor Assmnt - Choose All That Apply Each Factor Represents 1 point: Age 41-60 years Thrombosis Risk Factor Assessment Total Risk Factor Score: 1 Thrombosis Risk Factor Assessment Level: Low Risk Assessment and Plan Assessment: This is a 52-year-old female with past medical history noted below significant for bipolar disorder who presented to the hospital with chest discomfort. Patient said that the pain started last night with a tingling sensation in her chest and subsequently was more of a discomfort radiating to her left arm. Patient denies any prior cardiac history. There was no shortness of breath, diaphoresis, or palpitation associated with her symptoms. Her symptoms were nonexertional. In the emergency room, 12-lead EKG showed no acute ischemic changes. Serial troponin 3 sets were negative. D-dimer and chest x-ray were normal. Patient was placed in observation was seen and evaluated by cardiology. She underwent a stress echocardiogram awaiting final report. If her stress echocardiogram is negative patient will be discharged home in a stable condition.
[2017-06-20 12:39] VITALS: BP 140/90; PULSE 98
--- NOTE | 2017-06-21 12:52 | P.DS ---
Providers Date of admission: 06/20/17 00:26 Expected date of discharge: 06/21/17 Attending physician: Isadora Johnson Consults: 06/20/17 00:26 Consult Physician Urgent Consulting Provider: Lili Cano Consult Reason/Comments: Chest pain Do you want consulting provider notified?: Yes, Notify in am Primary care physician: Raysa England [facility] Course: This is a 52-year-old female with past medical history noted below significant for bipolar disorder who presented to the hospital with chest discomfort. Patient said that the pain started last night with a tingling sensation in her chest and subsequently was more of a discomfort radiating to her left arm. Patient denies any prior cardiac history. There was no shortness of breath, diaphoresis, or palpitation associated with her symptoms. Her symptoms were nonexertional. In the emergency room, 12-lead EKG showed no acute ischemic changes. Serial troponin 3 sets were negative. D-dimer and chest x-ray were normal. Patient was placed in observation was seen and evaluated by cardiology. She underwent a stress echocardiogram that was negative. She was cleared by cardiology to be discharged home. Patient Condition at Discharge: Stable Plan - Discharge Summary New Discharge Prescriptions: No Action Oxybutynin Xl [Ditropan Xl] 5 mg PO DAILY Lansoprazole [Prevacid] 30 mg PO BID Cyclobenzaprine [Flexeril] 5 mg PO BID Desipramine HCl [Norpramin] 50 mg PO DAILY Beclomethasone Dipropionate [Qvar Redihaler] 2 puff INHALATION BID Albuterol Nebulized [Ventolin Nebulized] 2.5 mg INHALATION Q4H PRN PRN Reason: Shortness Of Breath Discharge Medication List Cyclobenzaprine [Flexeril] 5 mg PO BID 06/19/17 [History] Desipramine HCl [Norpramin] 50 mg PO DAILY 06/19/17 [History] Lansoprazole [Prevacid] 30 mg PO BID 06/19/17 [History] Oxybutynin Xl [Ditropan Xl] 5 mg PO DAILY 06/19/17 [History] Albuterol Nebulized [Ventolin Nebulized] 2.5 mg INHALATION Q4H PRN 06/20/17 [ History] Beclomethasone Dipropionate [Qvar Redihaler] 2 puff INHALATION BID 06/20/17 [ History] Follow up Appointment(s)/Referral(s): Elodia Roth MD [STAFF PHYSICIAN] - 1 Week Raysa England DO [Primary Care Provider] - 1-2 days Discharge Disposition: HOME SELF-CARE
== END 2017-06-20 13:31 | disposition home or self-care (01) ==
LOC: EC 22:30 → 3OBS 06-20 00:26
PROVIDERS: ADMIT Internal Medicine; ATTEND Internal Medicine
DX: R07.89 Other chest pain (principal); R20.2 Paresthesia of skin; F31.9 Bipolar disorder, unspecified; F41.0 Panic disorder [episodic paroxysmal anxiety]; K21.9 Gastro-esophageal reflux disease without esophagitis; J44.9 Chronic obstructive pulmonary disease, unspecified; M19.90 Unspecified osteoarthritis, unspecified site; M06.9 Rheumatoid arthritis, unspecified; Z80.9 Family history of malignant neoplasm, unspecified; Z82.49 Family history of ischemic heart disease and other diseases of the circulatory system; Z79.899 Other long term (current) drug therapy; Z88.6 Allergy status to analgesic agent; Z87.891 Personal history of nicotine dependence
CPT/HCPCS: 99285 ×2; 96376 ×2; 96365 ×2; 96366; 36415; 93005; 93017; 93350; 85379; 83880; 80053; 82550 ×2; 82553 ×2; 83735; 84484 ×2; 85025; 85610; 85730 ×2; 71046; G0378; J1644 ×2

== ENCOUNTER → 2017-08-17 | Outpatient (CLI) | payer OTHER ==
[2017-08-17 13:10] LABS: ALT 35 U/L (9-52); AST 24 U/L (14-36); Albumin 4.3 g/dL (3.5-5.0); Alkaline Phosphatase 89 U/L (38-126); Anion Gap 11 mmol/L; Blood Urea Nitrogen 15 mg/dL (7-17); Calcium 9.6 mg/dL (8.4-10.2); Carbon Dioxide 26 mmol/L (22-30); Chloride 104 mmol/L (98-107); Creatine Kinase 93 U/L (30-135); Glucose 94 mg/dL (74-99); Magnesium 1.7 mg/dL (1.6-2.3); Potassium 4.7 mmol/L (3.5-5.1); Sodium 141 mmol/L (137-145); Total Bilirubin 0.4 mg/dL (0.2-1.3); Total Protein 7.1 g/dL (6.3-8.2)
[2017-08-17 13:27] LABS: T4, Free (Free Thyroxine) 1.21 ng/dL (0.78-2.19)
[2017-08-17 13:36] LABS: HCT 39.5 % (34.0-46.0); HGB 13.4 gm/dL (11.4-16.0); MCH 30.2 pg (25.0-35.0); MCHC 33.9 g/dL (31.0-37.0); MCV 88.9 fL (80.0-100.0); Mean Platelet Volume 7.1; Platelet Count 298 k/uL (150-450); RBC 4.44 m/uL (3.80-5.40); RDW 13.5 % (11.5-15.5); WBC 7.8 k/uL (3.8-10.6)
[2017-08-17 19:05] LABS: Iron Saturation 36.5 (12.00-45.00)
[2017-08-17 19:15] LABS: Vitamin D 25 Hydroxy 29.7 ng/mL (30.0-100.0)
[2017-08-17 21:42] LABS: Hemoglobin A1C 5.5 % (4.0-6.0)
[2017-08-20 16:17] LABS: Vitamin K 0.42 nmol/L (0.22-4.88)
== END ==
LOC: LABWHC1 12:16
PROVIDERS: ATTEND Psychiatry & Neurology Pain Medicine
DX: R53.83 Other fatigue (principal)
CPT/HCPCS: 36415; 80053; 82306; 82550; 82607; 82728; 83036; 83519; 83540; 83550; 83735; 84207; 84425; 84439; 84443; 84446; 84466; 84481; 84590; 84591; 84597; 85027

== ENCOUNTER → 2017-09-07 | Outpatient (CLI) | payer OTHER ==
--- NOTE | 2017-09-07 19:29 | MR ---
EXAMINATION TYPE: MR lumbar spine wo con DATE OF EXAM: 09/07/2017 COMPARISON: NONE HISTORY: Back pain TECHNIQUE: T1 and T2 axial and sagittal images of the lumbar spine are submitted. FINDINGS: There is no abnormal signal seen within the visualized spinal cord or paraspinal soft tissu es. At L1-2 there is degenerative disc disease with a Schmorl's node. There also is a broad-based central disc bulge with effacement of thecal sac. Bulging greater laterally to left with mild left foraminal encroachment. Borderline canal stenosis. At L2-3 there is degenerative disc disease but no canal stenosis. Neural foramina are patent. At L3-4 there is degenerative disc disease and mild facet hypertrophy. No foraminal encroachment or c anal stenosis At L4-5 there is severe facet arthropathy and ligamentum flavum hypertrophy with mild circumferential disc bulging and borderline to mild central stenosis. There is mild to moderate bilateral foraminal encroachment. There is a minimal anterolisthesis of L4 on L5 which appears degenerative. At L5-S1 there is degenerative disc disease. No disc herniation. There is broad-based central left pa racentral disc bulging with mild encroachment of the left neural foramina. Facet arthropathy noted an d there are vertebral body hemangiomas of L5 and S1. Slightly heterogeneous pattern of liver is nonspecific and be seen with osteopenia or marrow conversi on. Marrow occupying process although not excluded felt unlikely. IMPRESSION: 1. Multilevel degenerative disc disease with disc bulging noted at L1-L2 paracentrally and laterally to left with mild left foraminal encroachment and borderline canal stenosis. 2. There is a minimal anterolisthesis grade 1 L4 on L5 secondary to severe facet arthropathy. Disc bu lging contributes to borderline to mild central stenosis and bilateral foraminal encroachment. 3. Broad-based central and left paracentral disc bulging with mild left foraminal encroachment L5-S1. EXAMINATION TYPE: MRI cervical spine wo con DATE OF EXAM: 09/07/2017 COMPARISON: NONE HISTORY: Neck pain TECHNIQUE: T1 sagittal and coronal, T2 sagittal, and gradient echo axial views of the cervical spine are submitted. FINDINGS: The cranial cervical junction is preserved. There is no abnormal signal seen within the sp inal cord or paraspinal soft tissues. At C2-3 there is loss of disc signal. There is mild facet arthropathy. No Canal stenosis. No foramina l encroachment. At C3-4 there is degenerative disc disease and mild bilateral uncovertebral joint hypertrophy. No can al stenosis or focal herniation. Facet arthropathy on the left contributes to mild left-sided foramin al encroachment. At C4-5 there is severe degenerative disc disease with discogenic marrow changes. There is bilateral uncovertebral joint hypertrophy greater on the right. Mild bilateral foraminal encroachment. Borderli ne central stenosis. No spinal cord contact. At C5-6 there is severe degenerative disc disease with bilateral uncovertebral joint hypertrophy. The re is severe left-sided foraminal encroachment and moderate to severe right-sided foraminal encroachm ent. Disc bulging capped by spur paracentrally to the left contributes. There appears to be mild cent ral stenosis. At C6-7 there is severe degenerative disc disease with bilateral uncovertebral joint hypertrophy and facet arthropathy. There is mild to moderate bilateral foraminal encroachment but no canal stenosis. Very mild central disc bulging noted. At C7-T1 there is no disc herniation or canal stenosis. No foraminal encroachment. Incidental note is made of a left thyroid nodule measuring less than a centimeter IMPRESSION: 1. Multilevel severe degenerative disc disease. Posterior hypertrophic cervical spondylosis with dis c bulging contributes to mild central stenosis at C5-C6 and borderline stenosis at C4-C5. Findings a lso result in multilevel neural foraminal encroachment as discussed above with most marked findings a t C5-C6 demonstrating severe encroachment. 2. There is a 8mm left thyroid nodule.
--- NOTE | 2017-09-10 13:00 | MR ---
EXAMINATION TYPE: MR brain wo/w con DATE OF EXAM: 09/07/2017 COMPARISON: NONE HISTORY: Dizzy ,Gadavist 7.5ml TECHNIQUE: Multiplanar, multisequence images of the brain and brainstem is performed without and with IV contras t, utilizing 7.5 mL intravenous Gadavist . FINDINGS: Diffusion weighted images demonstrate no evidence of a recent infarct or other diffusion ab normality. White matter: There are approximately 10-15 focal areas of abnormal signal within the white matter. A ll measure less than 5 mm. No callosal lesions. No enhancing lesions. No lesions perpendicular to the ventricular system. Midline structures demonstrate normal morphology. The craniocervical junction appears within normal limits. Post contrast images demonstrate no abnormal enhancement. There are changes of chronic sinusitis. Nasal septal deviation noted. IMPRESSION: 1. Degenerative and nonspecific white matter changes. Differential diagnosis would include hypertensi on, remote microvascular ischemia. Demyelinating process not entirely excluded. 2. Chronic sinusitis.
== END | disposition home or self-care (01) ==
LOC: RADMRIMAIN 17:15
PROVIDERS: ATTEND Psychiatry & Neurology Neurology
DX: R90.82 White matter disease, unspecified (principal); M48.061 Spinal stenosis, lumbar region without neurogenic claudication; M51.27 Other intervertebral disc displacement, lumbosacral region; M43.16 Spondylolisthesis, lumbar region; M51.36 Other intervertebral disc degeneration, lumbar region; M46.96 Unspecified inflammatory spondylopathy, lumbar region; M48.02 Spinal stenosis, cervical region; M50.222 Other cervical disc displacement at C5-C6 level; M50.30 Other cervical disc degeneration, unspecified cervical region; M47.812 Spondylosis without myelopathy or radiculopathy, cervical region
CPT/HCPCS: 70553; 72141; 72148; A9581

== ENCOUNTER → 2018-12-18 | Outpatient (CLI) | payer OTHER ==
--- NOTE | 2018-12-18 11:36 | MM ---
Reason for exam: clinical finding. Last mammogram was performed 5 years and 1 month ago. History: Patient is postmenopausal. Family history of breast cancer in sister at age 52. Indicated problem(s): non-bloody discharge and pain in both breasts. Physical Findings: Nurse did not find any significant physical abnormalities on exam. MG Diagnostic Mammo w CAD [place] Bilateral CC and MLO view(s) were taken. ML and spot compression MLO view(s) were taken of the right breast. Prior study comparison: November 27, 2013, bilateral MG screening mammo w CAD. The breast tissue is heterogeneously dense. This may lower the sensitivity of mammography. Focal asymmetry lower right MLO, resolves on compression and ML. These results were verbally communicated with the patient and result sheet given to the patient on 12/18/18. ASSESSMENT: Benign, BI-RAD 2 RECOMMENDATION: Routine screening mammogram of both breasts in 1 year.
--- NOTE | 2018-12-18 11:39 | USB ---
Reason for exam: clinical finding. History: Patient is postmenopausal. Family history of breast cancer in sister at age 52. Indicated problem(s): non-bloody discharge and pain in both breasts. US Breast BILAT Right complete breast ultrasound includes all four quadrants, the retroareolar region and axilla. Finding demonstrates duct ectasia at the posterior nipple. Left complete breast ultrasound includes all four quadrants, the retroareolar region and axilla. Finding demonstrates a 1.3 x 1.0 x 0.7cm mixed lesion at 5 o'clock questionable duct, dilated versus complex cyst, a 0.8 x 0.7 x 0.6cm mixed lesion at 9 o'clock and ductal ectasia at the posterior nipple. These results were verbally communicated with the patient and result sheet given to the patient on 12/18/18. ASSESSMENT: Suspicious, BI-RAD 4 RECOMMENDATION: Ultrasound core biopsy of the left breast. (5 o'clock) Called Dr. England with mammographic findings and has scheduled an appointment for the patient for 01/30/19 at 12:[address] Ortiz. Biopsy scheduled for 01/31/19 at 11:30. PRELIMINARY REPORT CALLED AND FAXED TO DR. ORTIZ ON 12/18/18.
== END | disposition home or self-care (01) ==
LOC: RADMAMWWP 08:32
PROVIDERS: ATTEND Family Medicine
DX: N64.4 Mastodynia (principal); N64.52 Nipple discharge
CPT/HCPCS: 77066

== ENCOUNTER 2018-12-25 09:03 | Day surgery (SDC) | payer OTHER ==
[2018-12-23 14:38] VITALS: BMI 34.7
[2018-12-25] MEDS ORDERED: LIDOCAINE 1% INJ 10MG/ML (20 ML MDV) ONE (10:39)
[2018-12-25] MEDS ORDERED: PROPOFOL 10 MG/ML 20 ML VIAL IV ONE (10:39)
[2018-12-25 10:40] VITALS: TEMP 97.3
--- NOTE | 2018-12-25 10:58 | P.PCN ---
Date of Procedure: 12/25/18 Procedure(s) Performed: Brief history: Patient is a pleasant 53-year-old pleasant white female scheduled for an elective upper endoscopy as well as colonoscopy as a part of evaluation of GERD/Ríos's esophagus and evaluation of chronic diarrhea. She is been having chronic diarrhea with 5-10 e soft to loose movements a day for the last 6 months duration. She denies any abdominal pain or bleeding. Procedure performed: Esophagogastroduodenoscopy with biopsy Colonoscopy with biopsy Preoperative diagnosis: GERD/Ríos's esophagus Chronic diarrhea of 6 months duration Anesthesia: MAC Procedure: After informed consent was obtained from the patient was brought into the endoscopy unit and IV sedation was administered by anesthesia under continuous monitoring. Initially upper endoscopy was done. The Olympus GF 160 video endoscope was inserted inserted into the mouth and esophagus intubated without any difficulty and was gradually advanced into the stomach and duodenum and carefully examined. The bulb and second part of the duodenum appeared normal. Biopsies were done from the duodenum to rule out celiac disease. The scope was then withdrawn into the stomach adequately insufflated with air and upon careful examination the antrum and body, cardia and fundus appeared normal. The scope was then withdrawn into the esophagus. The GE junction was located at 32 cm to the incisors. It appeared regular with no erythema erosions or ulcerations. There was a short segment of Ríos's esophagus and a 5 mm proximal to the GE junction and this was biopsied. Rest of the esophagus appeared normal. Patient tolerated the procedure well. At this time the patient continued to remain sedation. Initial digital rectal examination was normal. Olympus CF 160 video colonoscope was then inserted into the rectum and gradually advanced to the cecum without any difficulty. Careful examination was performed as the scope was gradually being withdrawn. The prep was excellent. The cecum, ascending colon, transverse colon, descending colon, sigmoid colon and rectum appeared normal. Retroflexion was performed in the rectum and no lesions were noted. Random biopsies were done from ascending and descending colon to rule out microscopic/collagenous colitis. Patient tolerated the procedure well. Impression: 1. Upper endoscopy revealed small hiatal hernia and short segment Ríos's esophagus. 2. Colonoscopy was essentially within normal limits with no evidence of colitis or colorectal neoplasia Recommendations: Findings of this examination were discussed with the patient as well as her family. She was advised to follow with the biopsy results. If the biopsy does not show any evidence of dysplasia, she can have a repeat upper endoscopy in 2 years as a part of surveillance of Ríos's esophagus
[2018-12-25 11:31] VITALS: BP 128/70; PULSE 78; RESP 18
== END 2018-12-25 11:38 | disposition home or self-care (01) ==
LOC: ORWHC2ENDO 09:03
PROVIDERS: ATTEND Internal Medicine Gastroenterology
DX: K22.70 Barrett's esophagus without dysplasia (principal); K44.9 Diaphragmatic hernia without obstruction or gangrene; K21.9 Gastro-esophageal reflux disease without esophagitis; J44.9 Chronic obstructive pulmonary disease, unspecified; Z79.899 Other long term (current) drug therapy; R19.7 Diarrhea, unspecified
CPT/HCPCS: 45380; 43239; J2001; J2704; 88305

== ENCOUNTER → 2019-01-30 | Outpatient (CLI) | payer OTHER ==
[2019-01-30 12:18] VITALS: BP 131/86; PULSE 86; RESP 19; TEMP 98.6; BMI 36.2
--- NOTE | 2019-01-30 12:55 | P.GSHP ---
History of Present Illness H&P Date: 01/30/19 Chief Complaint: Mastodynia, nipple discharge, abnormal ultrasound left breast Leona is a 53 year old white female with a complaint of bilateral nipple tenderness, for the past year. She is uncertain as to whether the nipples are erect at the time of tenderness. He does not associate this with any change in medications. She has not taken any hormones. The nipple tenderness over the past several months appeared to resolve but she continues to have tenderness in the left breast in the upper inner quadrant area. She does not note any specific lumps or masses in her breast. The left breast tenderness has been persistent for 8 days. Nothing seems to make it better or worse. It does not radiate anyplace. The left breast tenderness feels most like a bruise. She did not have any trauma to that area. The patient for the past year has had bilateral nipple discharge. The discharge is yellow/white in nature. It is worse on the left side. It is spontaneous. The patient had not had a mammogram for 5 years. Most recently had one and [id number]. Bilateral mammogram was benign BIRADS 2 however secondary to the symptoms and ultrasound was recommended of the left breast. Ultrasound revealed a 1.3 x 1 cm mixed lesion at 5:00 questionable duct dilated versus complex cyst. An ultrasound core biopsy of the left breast was recommended. The patient states that she has had an MRI of her brain done several months ago. There is a question as to whether she had a prolactin level drawn. Family History: mother: ? type of cancer of metastatic disease maternal aunt: cancer ? type Hormonal Cancer: menarche: 11 , breast fed: yes, first born at 19 menopause: hysterectomy for tumor, not cancer at 48, took ovaries BCP: 1 year hormones: 1 year Surgical history: 1. Total abdominal hysterectomy 2. Prior suspension Medical history: 1. severe back pain, neck pain follows with neurology 2. Arthritis in both feet 3. Short-term memory loss 4. bi-polar disorder 5. Posttraumatic stress disorder Social History: smoke: none alcohol: none drugs: none - Constitutional Constitutional: Denies chills, Denies fever - EENT Comment: wears glasses Eyes: denies blurred vision, denies pain Ears: bilateral: tinnitus Ears, nose, mouth and throat: Reports headache, Denies sore throat - Breasts Breasts: bilateral: as per HPI - Cardiovascular Cardiovascular: Denies chest pain, Denies shortness of breath - Respiratory Comment: COPD, asthma Respiratory: Reports cough - Gastrointestinal Comment: polyps removed Gastrointestinal: Denies abdominal pain, Denies diarrhea, Denies nausea, Denies vomiting - Genitourinary (Female) Genitourinary: Denies dysuria, Denies hematuria - Menstruation Menstruation: Reports post hysterectomy - Musculoskeletal Musculoskeletal: Reports myalgias - Integumentary Integumentary: Reports pruritus - Neurological Neurological: Reports numbness, Denies weakness - Psychiatric Psychiatric: Reports as per HPI, Reports anxiety - Endocrine Endocrine: Reports weight change - Hematologic/Lymphatic Comment: none - Allergic/Immunologic Allergic/Immunologic: Reports seasonal allergies Past Medical History Past Medical History: Asthma, COPD, GERD/Reflux, Memory Impairment, Osteoarthritis (OA), Rheumatoid Arthritis (RA) Additional Past Medical History / Comment(s): carpal tunnel both hands, scolosis History of Any Multi-Drug Resistant Organisms: None Reported Past Surgical History: Appendectomy, Bladder Surgery, Hysterectomy, Tonsillectomy, Tubal Ligation Additional Past Surgical History / Comment(s): tumor 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 benign; Past Anesthesia/Blood Transfusion Reactions: No Reported Reaction Additional Past Anesthesia/Blood Transfusion Reaction / Comment(s): unknown family hx Past Psychological History: Anxiety, Bipolar, Depression, Panic Disorder Smoking Status: Never smoker Past Alcohol Use History: None Reported Past Drug Use History: None Reported - Past Family History Mother Family Medical History: Cancer Additional Family Medical History / Comment(s): metastatic cancer Father Family Medical History: Dementia Additional Family Medical History / Comment(s): pacemaker, heart issues Sister(s) Additional Family Medical History / Comment(s): heart blockage Medications and Allergies Home Medications Medication Instructions Recorded Confirmed Type Lansoprazole [Prevacid] 30 mg PO BID 06/19/17 01/30/19 History Albuterol Nebulized [Ventolin 2.5 mg INHALATION Q4H PRN 06/20/17 01/30/19 History Nebulized] Cetirizine HCl 10 mg PO DAILY 12/23/18 01/30/19 History HYDROcodone/APAP 5-325MG [[place] 1 tab PO TID PRN 12/23/18 01/30/19 History 5-325] Fluticasone Propion/Salmeterol 1 each INHALATION BID 01/16/19 01/30/19 History [Wixela 500-50 Inhub] Allergies Allergy/AdvReac Type Severity Reaction Status Date / Time aspirin AdvReac Nausea & Verified 01/30/19 12:07 Vomiting ibuprofen [From Motrin] AdvReac Nausea & Verified 01/30/19 12:07 Vomiting Surgical - Exam Vital Signs Temp Pulse Resp BP Pulse Ox 98.6 F 86 19 131/86 98 01/30/19 12:10 01/30/19 12:10 01/30/19 12:10 01/30/19 12:10 01/30/19 12:10 BMI 36.3 - General well developed, well nourished, no distress - Eyes normal ocular movement - ENT no hearing loss, no congestion - Neck no masses, trachea midline, no lymphadectomy - Respiratory normal expansion, normal respiratory effort, clear to auscultation - Cardiovascular Rhythm: regular Heart Sounds: normal: S1, S2 - Abdomen Abdomen: soft, non tender, bowel sounds, no guarding, no rigid, no rebound - Integumentary normal turgor - Neurologic no disoriented, no combative - Musculoskeletal normal gait, normal posture - Psychiatric oriented to time, oriented to person, oriented to place, speech is normal, memory intact Breast examination: Right breast: Multi-positional exam tender to palpation upper outer quadrant area slight asymmetry with increased fullness upper quadrant area and no discrete lump or mass, nipple discharge emanating from the 3 o'clock position this is milky in nature guaiac positive Right axilla: No adenopathy of concern Left breast: Multi-positional exam fibrocystic changes no dominant masses or nodules of concern, nipple discharge yellow/white in nature coming from the 12 o'clock position this is guaiac positive Left axilla: No adenopathy of concern The discharge from both nipples was collected on a quiet card guaiac developer was placed and this was noted to be positive for blood on both sides. Results Mammogram and ultrasound results reviewed Assessment and Plan Assessment: Impression: 1. Breast pain greatest at this time the right breast upper outer quadrant area probably fibrocystic in nature 2. Bilateral nipple discharge greater on the left this is guaiac positive 3. Abnormal ultrasound left breast 4. Family history of cancer 5. Fibromyalgia 6. Status post total abdominal hysterectomy 7. Anxiety/post traumatic stress disorder 8. Short-term memory loss Plan: 1. Breast pain most likely related to fibrocystic changes have instructed patient to stop caffeine intake 2. Bilateral nipple discharge guaiac positive patient to undergo bilateral duct exploration following ultrasound for biopsy of area of concern in the left breast 3. Ultrasound core biopsy of concern in the left breast 4. Follow up after ultrasound core biopsy of left breast 5. Medical management of medical conditions 6. Breast pain may be fibrocystic in nature as well as related to the fibromyalgia 7. Prolactin level and MRI of the brain results to be obtained CC: Dr. Raysa England
== END ==
LOC: WWCWWP 11:58
PROVIDERS: ATTEND Surgery
DX: Z53.9 Procedure and treatment not carried out, unspecified reason (principal)

== ENCOUNTER → 2019-01-31 | Day surgery (SDC) | payer OTHER ==
[2019-01-31 10:35] VITALS: PULSE 91; RESP 16; BMI 34.7
[2019-01-31 11:48] VITALS: BP 126/74; TEMP 98.1
--- NOTE | 2019-01-31 11:58 | USB ---
EXAMINATION TYPE: US biopsy breast VAD LT, MG diagnostic mammo LT wo CAD DATE OF EXAM: 01/31/2019 CLINICAL HISTORY: R92.8 Abnormal Mammogram. Bilateral nipple discharge TECHNIQUE: Ultrasound guided core biopsy of left breast. COMPARISON: Breast ultrasound dated 12/18/2018 FINDINGS: The procedure of ultrasound guided core biopsy was explained to the patient. Benefits, alternatives, and risks were discussed. An informed consent was then obtained. Preprocedural timeout was performed. The patient was placed in supine positioning for imaging and for the procedure. The overlying skin was prepped and draped in usual sterile fashion. 10 cc of 1% lidocaine was used as anesthetic into the skin and subcutaneous tissue up to area the 1.3 cm mass at the 5:00 position within the left breast. Under ultrasound guidance, a 12-gauge vacuum assisted biopsy gun device was used to obtain 2 core samples with complete collapse of the complex cystic mass on the second biopsy. Following this, a coil-shaped biopsy marker was placed at the site of biopsy. The patient tolerated the procedure well without any immediate complication. The patient was kept in the radiology department for short stay after the procedure and then discharged home in stable condition. Postprocedure mammogram demonstrates appropriate biopsy marker placement IMPRESSION: Successful, uncomplicated ultrasound guided core biopsy of area of the complicated cystic 1.3 cm mass at the 5:00 position within the left breast (possible papilloma versus complicated cyst in this patient with nipple discharge), full pathology results to follow. Pathology Results: Benign LEFT BREAST, 5:00, ULTRASOUND GUIDED CORE BIOPSY: Fibrocystic changes including nodular adenosis, fibrosis, secretory metaplasia and cysts. Recommendation Follow up ultrasound of the left breast in 6 months. [facility]
== END ==
LOC: RADUSWWP 10:02
PROVIDERS: ATTEND Surgery
DX: N60.12 Diffuse cystic mastopathy of left breast (principal); N60.22 Fibroadenosis of left breast; N64.52 Nipple discharge
CPT/HCPCS: 88305; 77065; 19083; A4648; J2001

== ENCOUNTER → 2019-02-21 | Outpatient (CLI) | payer OTHER ==
[2019-02-21 14:34] VITALS: BP 138/88; PULSE 92; RESP 18; TEMP 99.2; BMI 35.9
--- NOTE | 2019-02-21 15:35 | P.PN ---
Subjective Progress Note Date: 02/21/19 Leona is a 53 year old white female with a complaint of bilateral nipple tenderness, for the past year. She is uncertain as to whether the nipples are erect at the time of tenderness. She does not associate this with any change in medications. She has not taken any hormones. The nipple tenderness over the past several months appeared to resolve but she continues to have tenderness in the left breast in the upper inner quadrant area. She does not note any specific lumps or masses in her breast. The left breast tenderness has been persistent. Nothing seems to make it better or worse. It does not radiate anyplace. The left breast tenderness feels most like a bruise. She did not have any trauma to that area. The patient for the past year has had bilateral nipple discharge. The discharge is yellow/white in nature. It is worse on the left side. It is spontaneous. The patient had not had a mammogram for 5 years. Most recently had one and [id number]. Bilateral mammogram was benign BIRADS 2 however secondary to the symptoms and ultrasound was recommended of the left breast. Ultrasound revealed a 1.3 x 1 cm mixed lesion at 5:00 questionable duct dilated versus complex cyst. An ultrasound core biopsy of the left breast was recommended. The patient had left breast ultrasound core biopsy on . Pathology revealed fibrocystic changes. Patient tolerated the biopsies without difficulty. The patient continues to have persistent left-sided breast pain and bilateral nipple discharge, Both sides have bloody discharge guaiac testing was done in her last visit. The patient states that she has had an MRI of her brain done several months ago. Prolactin level from October 2018 is elevated at 53.4. MRI of the brain was done [facility] we have requested that this be obtained such that it can be reviewed to rule out prolactinoma. Family History: mother: ? type of cancer of metastatic disease maternal aunt: cancer ? type Hormonal Cancer: menarche: 11 , breast fed: yes, first born at 19 menopause: hysterectomy for tumor, not cancer at 48, took ovaries BCP: 1 year hormones: 1 year Surgical history: 1. Total abdominal hysterectomy 2. Prior suspension Medical history: 1. severe back pain, neck pain follows with neurology 2. Arthritis in both feet 3. Short-term memory loss 4. bi-polar disorder 5. Posttraumatic stress disorder Social History: smoke: none alcohol: none drugs: none - Constitutional Constitutional: Denies chills, Denies fever - EENT Comment: wears glasses Eyes: denies blurred vision, denies pain Ears: bilateral: tinnitus Ears, nose, mouth and throat: Reports headache, Denies sore throat - Breasts Breasts: bilateral: as per HPI - Cardiovascular Cardiovascular: Denies chest pain, Denies shortness of breath - Respiratory Comment: COPD, asthma Respiratory: Reports cough - Gastrointestinal Comment: polyps removed Gastrointestinal: Denies abdominal pain, Denies diarrhea, Denies nausea, Denies vomiting - Genitourinary (Female) Genitourinary: Denies dysuria, Denies hematuria - Menstruation Menstruation: Reports post hysterectomy - Musculoskeletal Musculoskeletal: Reports myalgias - Integumentary Integumentary: Reports pruritus - Neurological Neurological: Reports numbness, Denies weakness - Psychiatric Psychiatric: Reports as per HPI, Reports anxiety - Endocrine Endocrine: Reports weight change - Hematologic/Lymphatic Comment: none - Allergic/Immunologic Allergic/Immunologic: Reports seasonal allergies Objective - Vital Signs Vital signs: Vital Signs Temp 99.2 F 02/21/19 14:29 Pulse 92 02/21/19 14:29 Resp 18 02/21/19 14:29 BP 138/88 02/21/19 14:29 Pulse Ox 99 02/21/19 14:29 Intake & Output 02/20/19 02/21/19 02/21/19 18:59 06:59 18:59 Weight 86.183 kg - Exam BMI 35.9 - Constitutional General appearance: Present: average body habitus - EENT Eyes: Present: EOMI ENT: Present: hearing grossly normal - Neck Neck: Present: normal ROM - Respiratory Respiratory: bilateral: CTA - Cardiovascular Rhythm: regular Heart sounds: normal: S1, S2 - Gastrointestinal General gastrointestinal: Present: soft - Integumentary Integumentary: Present: normal - Musculoskeletal Musculoskeletal: Present: gait normal - Psychiatric Psychiatric: Present: A&O x's 3, appropriate affect, intact judgment & insight - Additional findings Additional findings: Breast exam: Right breast: Multi-positional exam fibrocystic changes, clear nipple discharge which is guaiac positive Right axilla: No adenopathy of concern Left breast exam: Multi-positional exam fibrocystic changes, milky nipple discharge which is guaiac positive no discrete dominant masses or nodules of concern Left axilla: No adenopathy of concern Nipple discharge tested bilaterally and bilaterally it is guaiac positive. The discharge is coming from breast on the right and mainly a 12:00 duct on the left. Assessment and Plan Assessment: Impression: 1. Status post core biopsy of the left breast pathology benign 2. Abnormal ultrasound of the left breast 3. Bilateral nipple discharge guaiac positive on both sides 3. Elevated prolactin level I4. Family history of cancer 5. Fibromyalgia 6. Status post total abdominal hysterectomy 7. Anxiety/post rheumatic stress disorder 8. Short-term memory loss Plan: 1. Would like to review the patient's MRI to rule out a prolactinoma 2. Consider endocrine evaluation secondary to elevated prolactin level 3. Consider bilateral duct exploration secondary to bloody nipple discharge 4. Medical management of medical conditions 5. Follow-up after seen by tumbling and rolling supervisor Cc: Dr. Raysa England
== END ==
LOC: WWCWWP 14:21
PROVIDERS: ATTEND Surgery
DX: Z53.9 Procedure and treatment not carried out, unspecified reason (principal)

== ENCOUNTER → 2019-04-04 | Outpatient (CLI) | payer OTHER ==
[2019-04-04 09:50] VITALS: BP 127/85; PULSE 85; RESP 18; TEMP 98.4
--- NOTE | 2019-04-04 10:16 | P.PN ---
Subjective Progress Note Date: 04/04/19 Principal diagnosis: Bilateral nipple discharge Leona is a 53 year old white female with a complaint of bilateral nipple tenderness, for the past year. She is uncertain as to whether the nipples are erect at the time of tenderness. She does not associate this with any change in medications. She has not taken any hormones. The nipple tenderness over the past several months appeared to resolve but she continues to have tenderness in the left breast in the upper inner quadrant area. She does not note any specific lumps or masses in her breast. The left breast tenderness has been persistent. Nothing seems to make it better or worse. It does not radiate anyplace. The left breast tenderness feels most like a bruise. She did not have any trauma to that area. The patient for the past year has had bilateral nipple discharge. The discharge is yellow/white in nature. It is worse on the left side. It is spontaneous. The patient had not had a mammogram for 5 years. Most recently had one and [id number]. Bilateral mammogram was benign BIRADS 2 however secondary to the symptoms and ultrasound was recommended of the left breast. Ultrasound revealed a 1.3 x 1 cm mixed lesion at 5:00 questionable duct dilated versus complex cyst. An ultrasound core biopsy of the left breast was recommended. The patient had left breast ultrasound core biopsy on . Pathology revealed fibrocystic changes. Patient tolerated the biopsies without difficulty. The patient continues to have persistent left-sided breast pain and bilateral nipple discharge, Both sides have bloody discharge guaiac testing was done in her last visit. The patient states that she has had an MRI of her brain done several months ago. Prolactin level from October 2018 is elevated at 53.4. [place] [address] this did not reveal any significant evidence of a prolactin lesion. Patient continues to have persistent bilateral nipple discharge, it is greatest on the breast. It occurs spontaneously. The patient drinks approximately 3 cups of coffee per day which is half decaf she also eats chocolate occasionally the patient does not smoke, she is exposed to secondhand smoke on occasion. The patient has been having the discharge bilaterally for approximately a year it is worse on the left side. Family History: mother: ? type of cancer of metastatic disease maternal aunt: cancer ? type Hormonal Cancer: menarche: 11 , breast fed: yes, first born at 19 menopause: hysterectomy for tumor, not cancer at 48, took ovaries BCP: 1 year hormones: 1 year Surgical history: 1. Total abdominal hysterectomy 2. Prior suspension Medical history: 1. severe back pain, neck pain follows with neurology 2. Arthritis in both feet 3. Short-term memory loss 4. bi-polar disorder 5. Posttraumatic stress disorder Social History: smoke: none alcohol: none drugs: none - Constitutional Constitutional: Denies chills, Denies fever - EENT Comment: wears glasses Eyes: denies blurred vision, denies pain Ears: bilateral: tinnitus Ears, nose, mouth and throat: Reports headache, Denies sore throat - Breasts Breasts: bilateral: as per HPI - Cardiovascular Cardiovascular: Denies chest pain, Denies shortness of breath - Respiratory Comment: COPD, asthma Respiratory: Reports cough - Gastrointestinal Comment: polyps removed Gastrointestinal: Denies abdominal pain, Denies diarrhea, Denies nausea, Denies vomiting - Genitourinary (Female) Genitourinary: Denies dysuria, Denies hematuria - Menstruation Menstruation: Reports post hysterectomy - Musculoskeletal Musculoskeletal: Reports myalgias - Integumentary Integumentary: Reports pruritus - Neurological Neurological: Reports numbness, Denies weakness - Psychiatric Psychiatric: Reports as per HPI, Reports anxiety - Endocrine Endocrine: Reports weight change - Hematologic/Lymphatic Comment: none - Allergic/Immunologic Allergic/Immunologic: Reports seasonal allergies Objective - Vital Signs Vital signs: Vital Signs Temp 98.4 F 04/04/19 09:45 Pulse 85 04/04/19 09:45 Resp 18 04/04/19 09:45 BP 127/85 04/04/19 09:45 Pulse Ox 97 04/04/19 09:45 Intake & Output 04/03/19 04/04/19 04/04/19 18:59 06:59 18:59 Weight 83.915 kg - Exam BMI 35 - Constitutional General appearance: Present: obese - EENT Eyes: Present: EOMI ENT: Present: hearing grossly normal - Neck Neck: Present: normal ROM - Respiratory Respiratory: bilateral: CTA - Cardiovascular Rhythm: regular Heart sounds: normal: S1, S2 - Gastrointestinal General gastrointestinal: Present: normal bowel sounds, soft - Integumentary Integumentary: Present: normal turgor - Musculoskeletal Musculoskeletal: Present: gait normal - Psychiatric Psychiatric: Present: A&O x's 3, appropriate affect, intact judgment & insight - Additional findings Additional findings: Breast examination: The examination was not repeated as it has been done on 2218. The nipple area was evaluated however on the right side there is discharge and is guaiac positive on the left side there is milky discharge and on today's exam this was guaiac-negative however does been quite positive in the past Assessment and Plan Assessment: Impression: 1. Bilateral nipple discharge/ no the in nature 2. Report of MRI of the brain does not reveal prolactinoma however prolactin level is high and suspect the patient may have a prolactinoma 3. Bloody nipple discharge bilateral demonstrated today on the right not noted on the left Plan: 1. Repeat prolactin level 2. Appointment with rn patient care 3. Consider bilateral duct exploration for bloody nipple discharge CC: DR. Raysa England encounter 20 minutes Time with Patient: Less than 30
== END | disposition home or self-care (01) ==
LOC: WWCWWP 09:15
PROVIDERS: ATTEND Surgery
DX: E22.1 Hyperprolactinemia (principal)
CPT/HCPCS: 36415; 84146

== ENCOUNTER 2019-04-16 20:30 | Emergency (ER) | payer OTHER ==
[2019-04-16 20:43] VITALS: TEMP 98.4
[2019-04-16] MEDS ORDERED: SODIUM CHLORIDE 0.9% 500 ML 500 ML IV STA (21:00)
[2019-04-16] MEDS ORDERED: LORazepam 1 MG TAB PO STA (21:00)
[2019-04-16 21:18] LABS: Basophils # (A) 0.2 k/uL (0-0.2); Basophils % (A) 2 %; Eosinophils # (A) 0.2 k/uL (0-0.7); Eosinophils % (A) 2 %; HCT 42.5 % (34.0-46.0); HGB 13.7 gm/dL (11.4-16.0); Lymphocytes # (A) 1.8 k/uL (1.0-4.8); Lymphocytes % (A) 18 %; MCH 28.6 pg (25.0-35.0); MCHC 32.2 g/dL (31.0-37.0); MCV 88.8 fL (80.0-100.0); Mean Platelet Volume 7.4; Monocytes # (A) 0.5 k/uL (0-1.0); Monocytes % (A) 5 %; Neutrophils # (A) 7.3 k/uL (1.3-7.7); Neutrophils % (A) 72 %; Platelet Count 345 k/uL (150-450); RBC 4.79 m/uL (3.80-5.40); RDW 12.7 % (11.5-15.5); WBC 10.1 k/uL (3.8-10.6)
[2019-04-16 21:26] LABS: Partial Thromboplastin Time 23.8 sec (22.0-30.0); Prothrombin Time 10.3 sec (9.0-12.0)
[2019-04-16 21:27] LABS: ALT 29 U/L (4-34); AST 38 U/L (14-36); African American GFR (CKD) >90 (>60 ml/min/1.73 sqM); Albumin 4.5 g/dL (3.5-5.0); Alkaline Phosphatase 97 U/L (38-126); Anion Gap 10 mmol/L; Blood Urea Nitrogen 12 mg/dL (7-17); Calcium 9.5 mg/dL (8.4-10.2); Carbon Dioxide 27 mmol/L (22-30); Chloride 103 mmol/L (98-107); Glucose 114 mg/dL (74-99); Magnesium 1.8 mg/dL (1.6-2.3); Non-African American GFR(CKD) 79 (>60 ml/min/1.73 sqM); Potassium 3.6 mmol/L (3.5-5.1); Sodium 140 mmol/L (137-145); Total Bilirubin 0.4 mg/dL (0.2-1.3); Total Protein 7.7 g/dL (6.3-8.2)
--- NOTE | 2019-04-16 21:48 | XR ---
EXAMINATION TYPE: XR chest 2V DATE OF EXAM: 04/16/2019 COMPARISON: 06/19/2017 HISTORY: Chest pain TECHNIQUE: FINDINGS: Heart is normal. Lungs are clear of infiltrate. There is no pleural effusion. Bony thorax i s intact. There are small calcified granuloma left upper lobe. IMPRESSION: No active cardiopulmonary disease. No change. Normal heart.
[2019-04-16] MEDS ORDERED: HYDROcodone/APAP 5-325MG 1 EACH TAB PO STA (23:40)
--- NOTE | 2019-04-17 01:07 | ED ---
General Adult HPI - General Chief complaint: Arrhythmia/Palpitations Stated complaint: racing heart Time Seen by Provider: 04/16/19 20:54 Source: patient, RN notes reviewed, old records reviewed Mode of arrival: wheelchair Limitations: no limitations - History of Present Illness Initial comments: 53-year-old female patient past history of reported COPD presents ED for chief complaint of anxiety. Patient reports that she has been extremely stressed recently with external left stressors. She denies any suicidal or homicidal ideations. Patient reports that she used to take benzodiazepines for anxiety, her refill her prescribed them. Patient reports that approximately half an hour prior to presentation she became extremely stressed but family related issues. She states that those of her heart was beating fast and she had some heaviness over her chest. Patient reports this was just transient. Denies any other complaints this time. Denies any current pain, denies any current shortness of breath. Systemic: Pt denies fatigue, fever/chills, rash. Pt denies weakness, night sweats, weight loss. Neuro: Pt denies headache, visual disturbances, syncope or pre-syncope. HEENT: Pt denies ocular discharge or irritation, otalgia, rhinorrhea, phary ngitis or notable lymphadenopathy. Cardiopulmonary: Pt denies chest pain, SOB, heart palpitations, dyspnea on exertion. Abdominal/GI: Pt denies abdominal pain, n/v/d. : Pt denies dysuria, burning w/ urination, frequency/urgency. Denies new onset urinary or bowel incontinence. MSK: Pt denies myalgia, loss of strength or function in extremities. Neuro: Pt denies new onset weakness, paresthesias. - Related Data Home Medications Medication Instructions Recorded Confirmed Lansoprazole [Prevacid] 30 mg PO BID 06/19/17 04/04/19 Albuterol Nebulized [Ventolin 2.5 mg INHALATION Q4H PRN 06/20/17 04/04/19 Nebulized] Cetirizine HCl 10 mg PO DAILY 12/23/18 04/04/19 HYDROcodone/APAP 5-325MG [Mchenry 1 tab PO TID PRN 12/23/18 04/04/19 5-325] Fluticasone Propion/Salmeterol 1 each INHALATION BID 01/16/19 04/04/19 [Wixela 500-50 Inhub] Allergies Allergy/AdvReac Type Severity Reaction Status Date / Time aspirin AdvReac Nausea & Verified 04/16/19 20:43 Vomiting ibuprofen [From Motrin] AdvReac Nausea & Verified 04/16/19 20:43 Vomiting Review of Systems ROS Statement: Those systems with pertinent positive or pertinent negative responses have been documented in the HPI. ROS Other: All systems not noted in ROS Statement are negative. Past Medical History Past Medical History: Asthma, COPD, GERD/Reflux, Osteoarthritis (OA), Rheumatoid Arthritis (RA) Additional Past Medical History / Comment(s): ABDOMINAL PAIN, carpal tunnel both hands, scolosis History of Any Multi-Drug Resistant Organisms: None Reported Past Surgical History: Bladder Surgery, Hysterectomy, Tubal Ligation Additional Past Surgical History / Comment(s): tumor 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 Past Anesthesia/Blood Transfusion Reactions: No Reported Reaction Additional Past Anesthesia/Blood Transfusion Reaction / Comment(s): unknown family hx Past Psychological History: Anxiety, Bipolar, Depression, Panic Disorder Smoking Status: Former smoker Past Alcohol Use History: None Reported Past Drug Use History: None Reported - Past Family History Mother Family Medical History: Cancer Additional Family Medical History / Comment(s): metastatic cancer Father Family Medical History: Dementia Additional Family Medical History / Comment(s): pacemaker, heart issues Sister(s) Additional Family Medical History / Comment(s): heart blockage General Exam - General Exam Comments Initial Comments: Constitutional: NAD, AOX3, Pt has pleasant affect. HEENT: NC/AT, trachea midline, neck supple, no lymphadenopathy. Posterior pharynx non erythematous, without exudates. External ears appear normal, without discharge. Mucous membranes moist. Eyes PERRLA, EOM intact. There is no scleral icterus. No pallor noted. Cardiopulmonary: RRR, no murmurs, rubs or gallops, no JVD noted. Lungs CTAB in anterior and posterior jimenes. No peripheral edema. Abdominal exam: Abdomen soft and non-distended. Abdomen non-tender to palpation in all 4 quadrants. Bowel sounds active in LLQ. No hepatosplenomegaly. No ecchymosis Neuro: CN II-XII grossly intact. No nuchal rigidity. No raccon eyes, no majano sign, no hemotympanum. No cervical spinal tenderness. MSK: No posterior calf tenderness bilaterally, homans sign negative bilaterally. Posterior tibialis and radial pulse +2 bilaterally. Sensation intact in upper and lower extremities. Full active ROM in upper and lower extremities, 5/5 stregnth. Limitations: no limitations Course Vital Signs 04/16/19 04/16/19 04/17/19 20:41 21:50 01:02 Temperature 98.4 F Pulse Rate 115 H 104 H Respiratory 22 18 18 Rate Blood Pressure 138/99 143/97 123/90 O2 Sat by Pulse 98 99 96 Oximetry Medical Decision Making - Medical Decision Making 53-year-old female patient past history of reported COPD presents ED for chief complaint of anxiety. Patient reports that she has been extremely stressed recently with external left stressors. She denies any suicidal or homicidal ideations. Patient reports that she used to take benzodiazepines for anxiety, her refill her prescribed them. Patient reports that approximately half an hour prior to presentation she became extremely stressed but family related issues. She states that those of her heart was beating fast and she had some heaviness over her chest. Patient reports this was just transient. Denies any other complaints this time. Denies any current pain, denies any current shortness of breath. Patient vital signs displayed mild tachycardia, within stable limits upon discharge. Heart rate 94 on discharge. Physical exam didn't display acute pathology. Laboratory investigations were noncompressive. EKG nonischemic. Troponin negative 2. Upon initial evaluation patient was administered a anterior anxiolytic. Patient has been symptom free during her entire stay. Patient discharged with outpatient follow-up with primary care provider. Return to ER if condition worsens. Case discussed with Dr. Mcmanus. - Lab Data Result diagrams: 04/16/19 21:08 04/16/19 21:08 Lab Results 04/16/19 04/16/19 04/16/19 Range/Units 21:08 21:08 21:08 WBC 10.1 (3.8-10.6) k/uL RBC 4.79 (3.80-5.40) m/uL Hgb 13.7 (11.4-16.0) gm/dL Hct 42.5 (34.0-46.0) % MCV 88.8 (80.0-100.0) fL MCH 28.6 (25.0-35.0) pg MCHC 32.2 (31.0-37.0) g/dL RDW 12.7 (11.5-15.5) % Plt Count 345 (150-450) k/uL Neutrophils % 72 % Lymphocytes % 18 % Monocytes % 5 % Eosinophils % 2 % Basophils % 2 % Neutrophils # 7.3 (1.3-7.7) k/uL Lymphocytes # 1.8 (1.0-4.8) k/uL Monocytes # 0.5 (0-1.0) k/uL Eosinophils # 0.2 (0-0.7) k/uL Basophils # 0.2 (0-0.2) k/uL PT 10.3 (9.0-12.0) sec INR 1.0 (<1.2) APTT 23.8 (22.0-30.0) sec Sodium 140 (137-145) mmol/L Potassium 3.6 (3.5-5.1) mmol/L Chloride 103 (98-107) mmol/L Carbon Dioxide 27 (22-30) mmol/L Anion Gap 10 mmol/L BUN 12 (7-17) mg/dL Creatinine 0.86 (0.52-1.04) mg/dL Est GFR (CKD-EPI)AfAm >90 (>60 ml/min/1.73 sqM) Est GFR (CKD-EPI)NonAf 79 (>60 ml/min/1.73 sqM) Glucose 114 H (74-99) mg/dL Calcium 9.5 (8.4-10.2) mg/dL Magnesium 1.8 (1.6-2.3) mg/dL Total Bilirubin 0.4 (0.2-1.3) mg/dL AST 38 H (14-36) U/L ALT 29 (4-34) U/L Alkaline Phosphatase 97 (38-126) U/L Troponin I (0.000-0.034) ng/mL Total Protein 7.7 (6.3-8.2) g/dL Albumin 4.5 (3.5-5.0) g/dL 04/16/19 04/16/19 Range/Units 21:08 23:45 WBC (3.8-10.6) k/uL RBC (3.80-5.40) m/uL Hgb (11.4-16.0) gm/dL Hct (34.0-46.0) % MCV (80.0-100.0) fL MCH (25.0-35.0) pg MCHC (31.0-37.0) g/dL RDW (11.5-15.5) % Plt Count (150-450) k/uL Neutrophils % % Lymphocytes % % Monocytes % % Eosinophils % % Basophils % % Neutrophils # (1.3-7.7) k/uL Lymphocytes # (1.0-4.8) k/uL Monocytes # (0-1.0) k/uL Eosinophils # (0-0.7) k/uL Basophils # (0-0.2) k/uL PT (9.0-12.0) sec INR (<1.2) APTT (22.0-30.0) sec Sodium (137-145) mmol/L Potassium (3.5-5.1) mmol/L Chloride (98-107) mmol/L Carbon Dioxide (22-30) mmol/L Anion Gap mmol/L BUN (7-17) mg/dL Creatinine (0.52-1.04) mg/dL Est GFR (CKD-EPI)AfAm (>60 ml/min/1.73 sqM) Est GFR (CKD-EPI)NonAf (>60 ml/min/1.73 sqM) Glucose (74-99) mg/dL Calcium (8.4-10.2) mg/dL Magnesium (1.6-2.3) mg/dL Total Bilirubin (0.2-1.3) mg/dL AST (14-36) U/L ALT (4-34) U/L Alkaline Phosphatase (38-126) U/L Troponin I <0.012 <0.012 (0.000-0.034) ng/mL Total Protein (6.3-8.2) g/dL Albumin (3.5-5.0) g/dL Disposition Clinical Impression: Anxiety, Heart palpitations Disposition: HOME SELF-CARE Condition: Stable Instructions (If sedation given, give patient instructions): Heart Palpitations (ED), Generalized Anxiety Disorder (ED) Additional Instructions: Follow-up with primary care provider tomorrow. Return to ER if condition worsens in anyway. Is patient prescribed a controlled substance at d/c from ED?: No Referrals: Raysa England DO [Primary Care Provider] - 1-2 days
[2019-04-17 01:36] VITALS: BP 112/94; PULSE 94; RESP 17
== END 2019-04-17 01:36 | disposition home or self-care (01) ==
LOC: EC 20:30
DX: F41.9 Anxiety disorder, unspecified (principal); R00.2 Palpitations; J44.9 Chronic obstructive pulmonary disease, unspecified; K21.9 Gastro-esophageal reflux disease without esophagitis; Z79.51 Long term (current) use of inhaled steroids; Z79.899 Other long term (current) drug therapy; Z88.6 Allergy status to analgesic agent; Z87.891 Personal history of nicotine dependence
CPT/HCPCS: 36415; 71046; 80053; 83735; 84484; 85025; 85610; 85730; 96360; 96361; 99284

== ENCOUNTER → 2019-05-02 | Outpatient (CLI) | payer OTHER ==
--- NOTE | 2019-05-02 16:05 | MR ---
EXAMINATION TYPE: MR pituitary wo/w con DATE OF EXAM: 05/02/2019 COMPARISON: MRI brain dated 09/07/2017 HISTORY: Hyperprolactinemia TECHNIQUE: Multiplanar, multisequence images of the brain and brainstem is performed without and with IV contras t, utilizing 8.5 mL intravenous Gadavist . FINDINGS: The craniocervical junction appears within normal limits. There is a focal hypointense lesion on post contrast enhancement of the left lateral aspect of the pituitary gland measuring 0.9 x 0.5 x 0.6 cm w ith MR characteristics most compatible with a pituitary microadenoma. This is not encase nor impress upon the cavernous portion of the left internal carotid artery. The remainder the pituitary gland is unremarkable. The pituitary stalk is also unremarkable. No abnormal postcontrast enhancement in the remaining visualized portions of the limited brain. The v isualized sinuses are clear and the globes are intact. IMPRESSION: MRI findings most compatible with a pituitary gland microadenoma.
== END | disposition home or self-care (01) ==
LOC: RADMRIMAIN 10:52
PROVIDERS: ATTEND Surgery
DX: E22.1 Hyperprolactinemia (principal)
CPT/HCPCS: 70553; A9585

== ENCOUNTER 2019-05-16 15:03 | Emergency (ER) | payer OTHER ==
[2019-05-16 15:07] VITALS: TEMP 98.3
[2019-05-16] MEDS ORDERED: HYDROcodone/APAP 7.5-325MG 1 EACH TAB PO ONE (15:21)
--- NOTE | 2019-05-16 15:31 | ED ---
Neuro HPI - General Chief Complaint: Neuro Symptoms/Deficit Stated Complaint: blurred vision, migrane Time Seen by Provider: 05/16/19 15:15 Source: patient, RN/MD Mode of arrival: ambulatory Limitations: no limitations - History of Present Illness Is the patient presenting with stroke symptoms?: No Initial Comments: 53yo female presenting today for chief complaint of headache blurred vision x 1 year that has been worsening. Patient states that she has had hyperprolactinemia for the past year, she states she has had milky discharge from the breast and was able to get into a breast specialist Dr. Bro who ordered MRI of the brain. Patient was found to have a pituitary microadenoma and upon visit today at Dr. Ortiz's office patient complaining of headache and increasing blurred vision she was sent to the emergency department to be transferred for neurosurgical evaluation and consultation. Patient states she does have a headache today she denies sudden onset she denies this being slightly worse than any of her headaches have been ongoing chronically for the past year. Patient states the blurred vision seems to be progressively getting worse. She states is in both eyes. Patient denies any vision loss. Patient denies any nausea or vomiting next stiffness fevers photophobia slurred speech weakness of the upper or lower extremity or sensation deficits. Upon arrival patient appears well there is no signs of acute distress. - Related Data Home Medications: Home Medications Medication Instructions Recorded Confirmed Lansoprazole [Prevacid] 30 mg PO BID 06/19/17 05/16/19 HYDROcodone/APAP 5-325MG [[place] 1 tab PO TID PRN 12/23/18 05/16/19 5-325] Allergies/Adverse Reactions: Allergies Allergy/AdvReac Type Severity Reaction Status Date / Time aspirin AdvReac Nausea & Verified 05/16/19 15:06 Vomiting ibuprofen [From Motrin] AdvReac Nausea & Verified 05/16/19 15:06 Vomiting Review of Systems ROS Statement: Those systems with pertinent positive or pertinent negative responses have been documented in the HPI. ROS Other: All systems not noted in ROS Statement are negative. General Exam - General Exam Comments Initial Comments: General: The patient is awake and alert, in no distress, and does not appear acutely ill. Eye: +3 mm pupils are equal, round and reactive to light, extra-ocular movements are intact. No nystagmus. There is normal conjunctiva bilaterally. No signs of icterus. Ears, nose, mouth and throat: There are moist mucous membranes and no oral lesions. Neck: The neck is supple, there is no tenderness or JVD. Cardiovascular: There is a regular rate and rhythm. No murmur, rub or gallop is appreciated. Respiratory: Lungs are clear to auscultation, respirations are non-labored, breath sounds are equal. No wheezes, stridor, rales, or rhonchi. Gastrointestinal: Soft, non-distended, non-tender abdomen without masses or organomegaly noted. There is no rebound or guarding present. Musculoskeletal: Normal ROM, no tenderness. Strength 5/5. Sensation intact. Radial pulses equal bilaterally 2+. Neurological: A&O x 3. CN II-XII intact, There are no obvious motor or sensory deficits. Coordination appears grossly intact. Speech is normal. Skin: Skin is warm and dry and no rashes or lesions are noted. Psychiatric: Cooperative, appropriate mood & affect, normal judgment. Limitations: no limitations Stroke MDM - Medical Decision Making 53-year-old female presenting for headache blurred vision. Patient states this has been ongoing chronically for the past year. She states has been worsening for the past few months she states that today she does have a headache bilateral blurred vision. Patient was sent by her breast surgeon who is evaluated patient for hyperprolactinemia for evaluation of a pituitary gland adenoma was discovered on MRI 05/02/2019. Patient will be transferred to [facility] for neurosurgical evaluation, Dr Granados accepted transfer and Dr. Gamboa was ag reeable to care plan, work up and transfer of patient. Patient transferred VIA ems. Past Medical History Past Medical History: Asthma, COPD, GERD/Reflux, Osteoarthritis (OA), Rheumatoid Arthritis (RA) Additional Past Medical History / Comment(s): ABDOMINAL PAIN, carpal tunnel both hands, scolosis History of Any Multi-Drug Resistant Organisms: None Reported Past Surgical History: Bladder Surgery, Hysterectomy, Tubal Ligation Additional Past Surgical History / Comment(s): tumor 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 Past Anesthesia/Blood Transfusion Reactions: No Reported Reaction Additional Past Anesthesia/Blood Transfusion Reaction / Comment(s): unknown family hx Past Psychological History: Anxiety, Bipolar, Depression, Panic Disorder Smoking Status: Never smoker Past Alcohol Use History: None Reported Past Drug Use History: None Reported - Past Family History Mother Family Medical History: Cancer Additional Family Medical History / Comment(s): metastatic cancer Father Family Medical History: Dementia Additional Family Medical History / Comment(s): pacemaker, heart issues Sister(s) Additional Family Medical History / Comment(s): heart blockage Course Vital Signs 05/16/19 15:04 Temperature 98.3 F Pulse Rate 69 Respiratory 16 Rate Blood Pressure 137/92 O2 Sat by Pulse 100 Oximetry - Reevaluation(s) Reevaluation #1: Spoke with Dr. Piña who is accepting emergency physician for transfer of patient for neurosurgical consultation and evaluation. Patient agreeable to transfer. 05/16/19 1532 Disposition Clinical Impression: Pituitary adenoma, Hx of hyperprolactinemia, Headache, Blurred vision Disposition: OTHER INSTITUTION NOT DEFINED Condition: Stable Is patient prescribed a controlled substance at d/c from ED?: No Referrals: Raysa England DO [Primary Care Provider] - 1-2 days Time of Disposition: 15:30 - Out of Hospital Transfer - Req. Specs Out of Hospital Transfer - Requested Specifics: Other Emergency Center ([facility]. Piña)
[2019-05-16 15:45] LABS: Basophils # (A) 0.1 k/uL (0-0.2); Basophils % (A) 1 %; Eosinophils # (A) 0.2 k/uL (0-0.7); Eosinophils % (A) 2 %; HCT 40.2 % (34.0-46.0); HGB 13.6 gm/dL (11.4-16.0); Lymphocytes # (A) 2.2 k/uL (1.0-4.8); Lymphocytes % (A) 33 %; MCH 30.4 pg (25.0-35.0); MCHC 33.8 g/dL (31.0-37.0); MCV 90.1 fL (80.0-100.0); Mean Platelet Volume 7.7; Monocytes # (A) 0.4 k/uL (0-1.0); Monocytes % (A) 6 %; Neutrophils # (A) 3.6 k/uL (1.3-7.7); Neutrophils % (A) 55 %; Platelet Count 305 k/uL (150-450); RBC 4.46 m/uL (3.80-5.40); RDW 12.9 % (11.5-15.5); WBC 6.6 k/uL (3.8-10.6)
[2019-05-16 15:53] LABS: ALT 17 U/L (4-34); AST 28 U/L (14-36); African American GFR (CKD) >90 (>60 ml/min/1.73 sqM); Albumin 4.5 g/dL (3.5-5.0); Alkaline Phosphatase 85 U/L (38-126); Anion Gap 9 mmol/L; Blood Urea Nitrogen 15 mg/dL (7-17); Calcium 9.2 mg/dL (8.4-10.2); Carbon Dioxide 24 mmol/L (22-30); Chloride 103 mmol/L (98-107); Glucose 98 mg/dL (74-99); Non-African American GFR(CKD) 86 (>60 ml/min/1.73 sqM); Potassium 4.8 mmol/L (3.5-5.1); Sodium 136 mmol/L (137-145); Total Bilirubin 0.4 mg/dL (0.2-1.3); Total Protein 7.6 g/dL (6.3-8.2)
[2019-05-16 21:05] VITALS: BP 140/92; PULSE 94; RESP 20
== END 2019-05-16 16:17 | disposition other institution (70) ==
LOC: EC 15:03
DX: D35.2 Benign neoplasm of pituitary gland (principal); H53.8 Other visual disturbances; K21.9 Gastro-esophageal reflux disease without esophagitis; Z79.899 Other long term (current) drug therapy; Z88.6 Allergy status to analgesic agent; Z86.39 Personal history of other endocrine, nutritional and metabolic disease
CPT/HCPCS: 36415; 80053; 85025; 99284

== ENCOUNTER 2019-08-28 23:00 | Emergency (ER) | payer OTHER ==
[2019-08-28 23:06] VITALS: TEMP 98.2
--- NOTE | 2019-08-28 23:28 | ED ---
Chest Pain HPI - General Chief Complaint: Chest Pain Stated Complaint: Chest pressure Time Seen by Provider: 08/28/19 23:07 Source: patient Mode of arrival: ambulatory Limitations: no limitations - History of Present Illness Initial Comments: This patient's 54-year-old woman who presents to be evaluated for left chest and left arm paresthesias. She states that these would come on tonight a little after 8 PM. Patient states that the symptoms were not exertional. She has had this previously and was seen here and states that the Ativan that she was given helped symptoms to resolve. She denies any associated symptoms tonight. No dyspnea, diaphoresis, nausea or vomiting, palpitations, lightheadedness or syncope. Patient also has had some perioral paresthesias as well. MD Complaint: chest pain Onset/Timin -: hour(s) Onset: during rest Pain Location: left chest Pain Radiation: LUE Severity: mild Quality: dull Consistency: constant Improves With: nothing Worsens With: nothing Treatments Prior to Arrival: none - Related Data Home Medications Medication Instructions Recorded Confirmed Lansoprazole [Prevacid] 30 mg PO BID 06/19/17 05/16/19 HYDROcodone/APAP 5-325MG [[place] 1 tab PO TID PRN 12/23/18 05/16/19 5-325] Allergies Allergy/AdvReac Type Severity Reaction Status Date / Time aspirin AdvReac Nausea & Verified 08/28/19 23:05 Vomiting ibuprofen [From Motrin] AdvReac Nausea & Verified 08/28/19 23:05 Vomiting Review of Systems ROS Statement: Those systems with pertinent positive or pertinent negative responses have been documented in the HPI. ROS Other: All systems not noted in ROS Statement are negative. Constitutional: Denies: fever, chills Respiratory: Denies: cough, dyspnea Cardiovascular: Reports: as per HPI, chest pain. Denies: palpitations, orthopnea, edema, syncope Gastrointestinal: Denies: abdominal pain, nausea, vomiting, melena, hematochezia Genitourinary: Denies: dysuria, hematuria Musculoskeletal: Denies: back pain Skin: Denies: rash Neurological: Reports: paresthesias. Denies: headache, weakness, numbness Psychiatric: Reports: anxiety EKG Findings - EKG Results: EKG: sinus rhythm (With sinus arrhythmia, rate 82 bpm), normal axis, normal QRS, normal ST/T, no acute changes Past Medical History Past Medical History: Asthma, COPD, GERD/Reflux, Osteoarthritis (OA), Rheumatoid Arthritis (RA) Additional Past Medical History / Comment(s): ABDOMINAL PAIN, carpal tunnel both hands, scolosis History of Any Multi-Drug Resistant Organisms: None Reported Past Surgical History: Bladder Surgery, Hysterectomy, Tubal Ligation Additional Past Surgical History / Comment(s): tumor 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 Past Anesthesia/Blood Transfusion Reactions: No Reported Reaction Additional Past Anesthesia/Blood Transfusion Reaction / Comment(s): unknown family hx Past Psychological History: Anxiety, Bipolar, Depression, Panic Disorder Smoking Status: Never smoker Past Alcohol Use History: None Reported Past Drug Use History: None Reported - Past Family History Mother Family Medical History: Cancer Additional Family Medical History / Comment(s): metastatic cancer Father Family Medical History: Dementia Additional Family Medical History / Comment(s): pacemaker, heart issues Sister(s) Additional Family Medical History / Comment(s): heart blockage General Exam Limitations: no limitations General appearance: alert, in no apparent distress, anxious Head exam: Present: atraumatic, normocephalic Eye exam: Present: normal appearance. Absent: scleral icterus, conjunctival injection ENT exam: Present: normal oropharynx Neck exam: Present: normal inspection Respiratory exam: Present: normal lung sounds bilaterally. Absent: respiratory distress, wheezes, rales, rhonchi, stridor Cardiovascular Exam: Present: regular rate, normal rhythm, normal heart sounds. Absent: systolic murmur, diastolic murmur, rubs, gallop GI/Abdominal exam: Present: soft. Absent: distended, tenderness, guarding, rebound, rigid, mass Extremities exam: Present: normal inspection, normal capillary refill. Absent: pedal edema, calf tenderness Back exam: Present: normal inspection. Absent: CVA tenderness (R), CVA tenderness (L) Neurological exam: Present: alert Skin exam: Present: warm, dry, intact, normal color. Absent: rash Course Vital Signs 08/28/19 08/28/19 08/28/19 23:02 23:19 23:20 Temperature 98.2 F Pulse Rate 108 H 110 H Respiratory 18 20 13 Rate Blood Pressure 149/96 160/122 O2 Sat by Pulse 100 100 100 Oximetry 08/28/19 08/29/19 23:56 01:06 Temperature Pulse Rate 108 H 101 H Respiratory 18 18 Rate Blood Pressure 157/108 140/94 O2 Sat by Pulse 97 100 Oximetry Chest Pain MDM - MDM Patient is 54-year-old woman presenting with left chest and left upper extremity paresthesias. Her initial workup is negative. I discussed having admission for serial cardiac enzymes and telemetry monitoring, but the patient states that all of her symptoms have resolved and she would like to go home. I discussed having second set of cardiac enzymes to increase the margin of safety for establishing cardiac etiology, patient states that she is feeling well and will go home. She is going to call Dr. Luna in the morning to set up follow-up with cardiology. She agrees to return should symptoms recur. We also discussed that her blood pressure will need to be monitored to see if she will need start antihypertensive. Disposition Clinical Impression: Chest pain, Hypertension Disposition: HOME SELF-CARE Condition: Good Instructions (If sedation given, give patient instructions): Chest Pain (ED), Hypertension (ED) Is patient prescribed a controlled substance at d/c from ED?: No Referrals: Raysa England DO [Primary Care Provider] - 1-2 days
[2019-08-28 23:59] VITALS: RESP 18
--- NOTE | 2019-08-28 23:59 | XR ---
EXAMINATION TYPE: XR chest 2V DATE OF EXAM: 08/28/2019 COMPARISON: 04/16/2019 HISTORY: Cough. Chest heaviness TECHNIQUE: 2 views FINDINGS: Heart and mediastinum are normal. Lungs are clear. Diaphragm is normal. Bony thorax appears normal. IMPRESSION: Normal chest. No change.
[2019-08-29 00:33] LABS: Albumin 4.4 g/dL (3.5-5.0); Calcium 9.7 mg/dL (8.4-10.2); Magnesium 1.9 mg/dL (1.6-2.3); Potassium 4.1 mmol/L (3.5-5.1); Total Bilirubin 0.4 mg/dL (0.2-1.3); Total Protein 7.7 g/dL (6.3-8.2)
[2019-08-29 00:41] LABS: Basophils # (A) 0.1 k/uL (0-0.2); Basophils % (A) 1 %; Eosinophils # (A) 0.2 k/uL (0-0.7); Eosinophils % (A) 2 %; HCT 40.3 % (34.0-46.0); HGB 13.8 gm/dL (11.4-16.0); Lymphocytes # (A) 2.1 k/uL (1.0-4.8); Lymphocytes % (A) 20 %; MCH 30.1 pg (25.0-35.0); MCHC 34.2 g/dL (31.0-37.0); Mean Platelet Volume 8.3; Monocytes # (A) 0.6 k/uL (0-1.0); Monocytes % (A) 5 %; Neutrophils # (A) 7.3 k/uL (1.3-7.7); Neutrophils % (A) 71 %; Platelet Count 339 k/uL (150-450); RBC 4.58 m/uL (3.80-5.40); RDW 13.1 % (11.5-15.5); WBC 10.3 k/uL (3.8-10.6)
[2019-08-29 00:48] LABS: D-Dimer 0.35 mg/L FEU (<0.60); INR 0.9 (<1.2); Partial Thromboplastin Time 22.6 sec (22.0-30.0); Prothrombin Time 9.7 sec (9.0-12.0)
[2019-08-29 01:08] VITALS: BP 140/94; PULSE 101
== END 2019-08-29 01:55 | disposition home or self-care (01) ==
LOC: EC 23:00
DX: R07.9 Chest pain, unspecified (principal); I10 Essential (primary) hypertension; R20.2 Paresthesia of skin; K21.9 Gastro-esophageal reflux disease without esophagitis; Z53.29 Procedure and treatment not carried out because of patient's decision for other reasons; Z79.899 Other long term (current) drug therapy; Z98.890 Other specified postprocedural states; Z88.6 Allergy status to analgesic agent
CPT/HCPCS: 36415; 71046; 80053; 83735; 84484; 85025; 85379; 85610; 85730; 93005; 99285

== ENCOUNTER 2021-01-19 16:01 | Emergency (ER) | payer OTHER ==
[2021-01-19 17:18] VITALS: BP 133/94; PULSE 72; RESP 18; TEMP 98.5
[2021-01-19] MEDS ORDERED: Acetaminophen-Codeine 300-30mg TAB PO STA (18:00)
[2021-01-19] MEDS ORDERED: KETOROLAC 15 MG/ML 1 ML VIAL IM STA (18:00)
--- NOTE | 2021-01-19 18:00 | XR ---
EXAMINATION TYPE: XR humerus RT, XR clavicle RT DATE OF EXAM: 01/19/2021 COMPARISON: Chest radiograph dated 08/20/2019 HISTORY: 55 years Female. STUDY INDICATION GIVEN: pain from fall . TECHNIQUE: 2 radiographic of the right humerus. 2 radiographs of the right clavicle. IMPRESSION: Right humerus: No acute fracture or dislocation seen. 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 Right glenohumeral joint and ac romioclavicular joints are acutely intact. There is mild osteoarthrosis of the right acromioclavicula r joint. The right elbow joint is within normal. The right hemithorax is within normal limits. Right clavicle: No acute clavicle fracture or dislocation. Mild OA at the right AC joint. The coracoc lavicular interval is within normal limits and is not significantly changed compared to prior.
--- NOTE | 2021-01-19 18:07 | ED ---
General Adult HPI - General Chief complaint: Extremity Injury, Upper Stated complaint: Rt Arm Injury Time Seen by Provider: 01/19/21 17:15 Source: patient, RN notes reviewed, old records reviewed Mode of arrival: ambulatory Limitations: no limitations - History of Present Illness Initial comments: This a 55-year-old female who presents emergency Department complaining of right shoulder pain. Patient states she was walking her dog 3 days ago and she got pulled by him with the leash and she hurt her shoulder. Patient states she tried a weighted out but she states the pain is so bad anytime she even tries to lift her arm even more coffee she states the pain is extremely bad. Patient denies any clavicle pain patient back pain patient denies any neck pain. Patient states it's the anterior aspect of her shoulder. - Related Data Home Medications Medication Instructions Recorded Confirmed Albuterol Nebulized [Ventolin 2.5 mg INHALATION RT-Q4H PRN 01/19/21 01/19/21 Nebulized] Cetirizine HCl [Zyrtec] 10 mg PO DAILY 01/19/21 01/19/21 Cyanocobalamin (Vitamin B-12) 1,000 mcg PO BID 01/19/21 01/19/21 [Vitamin B-12] Magnesium Oxide [Mag-Ox] 400 mg PO DAILY 01/19/21 01/19/21 Metoprolol Succinate [Toprol XL] 25 mg PO DAILY 01/19/21 01/19/21 Montelukast [Singulair] 10 mg PO HS 01/19/21 01/19/21 Multivitamins, Thera [Multivitamin 2 tab PO DAILY 01/19/21 01/19/21 (formulary)] Omeprazole 40 mg PO BID 01/19/21 01/19/21 Allergies Allergy/AdvReac Type Severity Reaction Status Date / Time aspirin AdvReac Nausea & Verified 01/19/21 18:35 Vomiting ibuprofen [From Motrin] AdvReac Nausea & Verified 01/19/21 18:35 Vomiting Review of Systems ROS Statement: Those systems with pertinent positive or pertinent negative responses have been documented in the HPI. ROS Other: All systems not noted in ROS Statement are negative. Past Medical History Past Medical History: Asthma, COPD, GERD/Reflux, Osteoarthritis (OA), Rheumatoid Arthritis (RA) Additional Past Medical History / Comment(s): ABDOMINAL PAIN, carpal tunnel both hands, scolosis History of Any Multi-Drug Resistant Organisms: None Reported Past Surgical History: Bladder Surgery, Hysterectomy, Tubal Ligation Additional Past Surgical History / Comment(s): tumor 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 Past Anesthesia/Blood Transfusion Reactions: No Reported Reaction Additional Past Anesthesia/Blood Transfusion Reaction / Comment(s): unknown family hx Past Psychological History: Anxiety, Bipolar, Depression, Panic Disorder Smoking Status: Never smoker Past Alcohol Use History: None Reported Past Drug Use History: None Reported - Past Family History Mother Family Medical History: Cancer Additional Family Medical History / Comment(s): metastatic cancer Father Family Medical History: Dementia Additional Family Medical History / Comment(s): pacemaker, heart issues Sister(s) Additional Family Medical History / Comment(s): heart blockage General Exam - General Exam Comments Initial Comments: GENERAL Patient is well-developed and well-nourished. Patient is in mild distress. EYES Patient's pupils are equal and round. Extraocular motion is intact SKIN Unremarkable NEURO The patient is alert and oriented 3 PYSCH Patient has normal interpersonal interactions. MUSCULOSKELETAL Patient has some tenderness to the anterior aspect of the right shoulder. She has pain with external rotation and was any attempt to elevate the upper arm. Limitations: no limitations Course Vital Signs 01/19/21 17:14 Temperature 98.5 F Pulse Rate 72 Respiratory 18 Rate Blood Pressure 133/94 O2 Sat by Pulse 97 Oximetry Medical Decision Making - Medical Decision Making Patient received Toradol and Tylenol codeine Patient did not wait for the results return on her x-rays. Patient left AMA. Disposition Clinical Impression: Rotator cuff injury Disposition: Left Against Medical Advice Is patient prescribed a controlled substance at d/c from ED?: No Referrals: Raysa England DO [Primary Care Provider] - 1-2 days Time of Disposition: 19:52
--- NOTE | 2021-01-19 19:44 | XR ---
EXAMINATION TYPE: XR shoulder limited RT DATE OF EXAM: 01/19/2021 COMPARISON: NONE HISTORY: Pain TECHNIQUE: Three views are submitted. FINDINGS: The osseous structures are intact. There is no acute fracture or dislocation. There is AC joint arth ropathy. No acute fracture or dislocation. IMPRESSION: 1. AC joint arthropathy correlate for rotator cuff disease.
== END 2021-01-19 19:45 | disposition left against medical advice (07) ==
LOC: EC 16:01
DX: S46.001A Unspecified injury of muscle(s) and tendon(s) of the rotator cuff of right shoulder, initial encounter (principal); K21.9 Gastro-esophageal reflux disease without esophagitis; J44.9 Chronic obstructive pulmonary disease, unspecified; M06.9 Rheumatoid arthritis, unspecified; F31.9 Bipolar disorder, unspecified; F41.9 Anxiety disorder, unspecified; Z79.51 Long term (current) use of inhaled steroids; Z79.899 Other long term (current) drug therapy; Z88.5 Allergy status to narcotic agent; Z88.6 Allergy status to analgesic agent; X50.1XXA Overexertion from prolonged static or awkward postures, initial encounter
CPT/HCPCS: 73000; 73020; 73060; 96372; 99283; J1885

== ENCOUNTER 2021-01-30 20:25 | Emergency (ER) | payer OTHER ==
[2021-01-30] MEDS ORDERED: LORazepam 1 MG TAB PO STA (21:16)
[2021-01-30 21:34] LABS: Basophils # (A) 0.1 k/uL (0-0.2); Basophils % (A) 1 %; Eosinophils # (A) 0.1 k/uL (0-0.7); Eosinophils % (A) 1 %; HCT 40.3 % (34.0-46.0); HGB 13.8 gm/dL (11.4-16.0); Lymphocytes # (A) 2.4 k/uL (1.0-4.8); Lymphocytes % (A) 29 %; MCHC 34.3 g/dL (31.0-37.0); MCV 87.3 fL (80.0-100.0); Mean Platelet Volume 7.6; Monocytes # (A) 0.6 k/uL (0-1.0); Monocytes % (A) 7 %; Neutrophils # (A) 5.1 k/uL (1.3-7.7); Neutrophils % (A) 61 %; Platelet Count 302 k/uL (150-450); RBC 4.62 m/uL (3.80-5.40); RDW 13.5 % (11.5-15.5); WBC 8.4 k/uL (3.8-10.6)
[2021-01-30 21:43] LABS: INR 0.9 (<1.2); Partial Thromboplastin Time 23.2 sec (22.0-30.0); Prothrombin Time 10.2 sec (9.0-12.0)
[2021-01-30 21:44] VITALS: RESP 20
--- NOTE | 2021-01-30 21:46 | XR ---
EXAMINATION TYPE: XR chest 2V DATE OF EXAM: 01/30/2021 COMPARISON: 08/28/2019 HISTORY: High blood pressure. Irregular heart rate TECHNIQUE: FINDINGS: Heart and mediastinum are normal. Lungs are clear. Diaphragm is normal. Bony thorax is inta ct. IMPRESSION: Normal chest. No change.
[2021-01-30 21:52] LABS: ALT 24 U/L (4-34); AST 31 U/L (14-36); African American GFR (CKD) >90 (>60 ml/min/1.73 sqM); Albumin 4.3 g/dL (3.5-5.0); Alkaline Phosphatase 106 U/L (38-126); Anion Gap 10 mmol/L; Blood Urea Nitrogen 12 mg/dL (7-17); Calcium 9.8 mg/dL (8.4-10.2); Carbon Dioxide 24 mmol/L (22-30); Chloride 102 mmol/L (98-107); Glucose 102 mg/dL (74-99); Magnesium 1.9 mg/dL (1.6-2.3); Non-African American GFR(CKD) 80 (>60 ml/min/1.73 sqM); Potassium 3.9 mmol/L (3.5-5.1); Sodium 136 mmol/L (137-145); Total Bilirubin 0.4 mg/dL (0.2-1.3); Total Protein 7.6 g/dL (6.3-8.2)
--- NOTE | 2021-01-30 22:13 | ED ---
Recheck HPI - General Chief Complaint: Recheck/Abnormal Lab/Rx Stated Complaint: B/P Is elevated Time Seen by Provider: 01/30/21 20:36 Source: patient Mode of arrival: wheelchair Limitations: no limitations - History of Present Illness Initial Comments: 55-year-old female patient presents to the emergency department today for evaluation of elevated blood pressure and left-sided chest and arm discomfort. Patient states that she has been extremely busy for the last 2 weeks. States last 2 days she's been nonstop moving boxes up and down stairs and hasn't really been eating or drinking much. States that tonight she checked her blood pressure and is elevated. States she had some mild discomfort so she came in for evaluation. Patient believes this is anxiety she is requesting Ativan. States that she is very anxious and constantly worries. Previously was on Zoloft but it did not help her. Patient denies any recent rash, fever, chills, cough, shortness of breath, abdominal pain, nausea, vomiting, diarrhea, constipation, back pain, numbness, tingling, dizziness, weakness, hematuria, dysuria, urinary urgency, urinary frequency, headache, visual changes, or any other complaints. - Related Data Home Medications Medication Instructions Recorded Confirmed Albuterol Nebulized [Ventolin 2.5 mg INHALATION RT-Q4H PRN 01/19/21 01/19/21 Nebulized] Cetirizine HCl [Zyrtec] 10 mg PO DAILY 01/19/21 01/19/21 Cyanocobalamin (Vitamin B-12) 1,000 mcg PO BID 01/19/21 01/19/21 [Vitamin B-12] Magnesium Oxide [Mag-Ox] 400 mg PO DAILY 01/19/21 01/19/21 Metoprolol Succinate [Toprol XL] 25 mg PO DAILY 01/19/21 01/19/21 Montelukast [Singulair] 10 mg PO HS 01/19/21 01/19/21 Multivitamins, Thera [Multivitamin 2 tab PO DAILY 01/19/21 01/19/21 (formulary)] Omeprazole 40 mg PO BID 01/19/21 01/19/21 Previous Rx's Medication Instructions Recorded LORazepam [Ativan] 1 mg PO DAILY 3 Days #3 tab 01/30/21 Allergies Allergy/AdvReac Type Severity Reaction Status Date / Time aspirin AdvReac Nausea & Verified 01/30/21 20:33 Vomiting ibuprofen [From Motrin] AdvReac Nausea & Verified 01/30/21 20:33 Vomiting Review of Systems ROS Statement: Those systems with pertinent positive or pertinent negative responses have been documented in the HPI. ROS Other: All systems not noted in ROS Statement are negative. Past Medical History Past Medical History: Asthma, COPD, GERD/Reflux, Hypertension, Osteoarthritis (OA), Rheumatoid Arthritis (RA) Additional Past Medical History / Comment(s): ABDOMINAL PAIN, carpal tunnel both hands, scolosis History of Any Multi-Drug Resistant Organisms: None Reported Past Surgical History: Bladder Surgery, Hysterectomy, Tubal Ligation Additional Past Surgical History / Comment(s): tumor 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 Past Anesthesia/Blood Transfusion Reactions: No Reported Reaction Additional Past Anesthesia/Blood Transfusion Reaction / Comment(s): unknown family hx Past Psychological History: Anxiety, Bipolar, Depression, Panic Disorder Smoking Status: Never smoker Past Alcohol Use History: None Reported Past Drug Use History: None Reported - Past Family History Mother Family Medical History: Cancer Additional Family Medical History / Comment(s): metastatic cancer Father Family Medical History: Dementia Additional Family Medical History / Comment(s): pacemaker, heart issues Sister(s) Additional Family Medical History / Comment(s): heart blockage General Exam Limitations: no limitations General appearance: alert, in no apparent distress, other (This is a well- developed, well-nourished adult female patient in no acute distress.) Eye exam: Present: normal appearance, PERRL, EOMI. Absent: scleral icterus, conjunctival injection, periorbital swelling ENT exam: Present: normal exam, normal oropharynx, mucous membranes moist Respiratory exam: Present: normal lung sounds bilaterally. Absent: respiratory distress, wheezes, rales, rhonchi, stridor Cardiovascular Exam: Present: regular rate, normal rhythm, normal heart sounds. Absent: systolic murmur, diastolic murmur, rubs, gallop, clicks GI/Abdominal exam: Present: soft, normal bowel sounds. Absent: distended, tenderness, guarding, rebound, rigid Neurological exam: Present: alert, oriented X3, CN II-XII intact Psychiatric exam: Present: normal affect, normal mood Skin exam: Present: warm, dry, intact, normal color. Absent: rash Course Vital Signs 01/30/21 01/30/21 20:29 21:42 Temperature 97.4 F L Pulse Rate 105 H 99 Respiratory 18 20 Rate Blood Pressure 154/91 146/99 O2 Sat by Pulse 100 98 Oximetry Medical Decision Making - Medical Decision Making 55-year-old female patient presented to the emergency department today complaining of anxiety, left arm and chest discomfort. Physical examination is unremarkable. Labs reviewed and are unremarkable. EKG is unremarkable. Upon reevaluation she is resting comfortably in bed. States she does feel better after receiving a dose of Ativan. She'll be discharged to follow-up with her primary care physician for recheck in 1-2 days. Return parameters were discussed in detail. She verbalizes understanding and agrees with this plan. Case discussed with my attending Dr. Booker. - Lab Data Result diagrams: 01/30/21 21:23 01/30/21 21:23 Lab Results 01/30/21 01/30/21 01/30/21 Range/Units 21:23 21:23 21:23 WBC 8.4 (3.8-10.6) k/uL RBC 4.62 (3.80-5.40) m/uL Hgb 13.8 (11.4-16.0) gm/dL Hct 40.3 (34.0-46.0) % MCV 87.3 (80.0-100.0) fL MCH 30.0 (25.0-35.0) pg MCHC 34.3 (31.0-37.0) g/dL RDW 13.5 (11.5-15.5) % Plt Count 302 (150-450) k/uL MPV 7.6 Neutrophils % 61 % Lymphocytes % 29 % Monocytes % 7 % Eosinophils % 1 % Basophils % 1 % Neutrophils # 5.1 (1.3-7.7) k/uL Lymphocytes # 2.4 (1.0-4.8) k/uL Monocytes # 0.6 (0-1.0) k/uL Eosinophils # 0.1 (0-0.7) k/uL Basophils # 0.1 (0-0.2) k/uL PT 10.2 (9.0-12.0) sec INR 0.9 (<1.2) APTT 23.2 (22.0-30.0) sec Sodium 136 L (137-145) mmol/L Potassium 3.9 (3.5-5.1) mmol/L Chloride 102 (98-107) mmol/L Carbon Dioxide 24 (22-30) mmol/L Anion Gap 10 mmol/L BUN 12 (7-17) mg/dL Creatinine 0.84 (0.52-1.04) mg/dL Est GFR (CKD-EPI)AfAm >90 (>60 ml/min/1.73 sqM) Est GFR (CKD-EPI)NonAf 80 (>60 ml/min/1.73 sqM) Glucose 102 H (74-99) mg/dL Calcium 9.8 (8.4-10.2) mg/dL Magnesium 1.9 (1.6-2.3) mg/dL Total Bilirubin 0.4 (0.2-1.3) mg/dL AST 31 (14-36) U/L ALT 24 (4-34) U/L Alkaline Phosphatase 106 (38-126) U/L Troponin I (0.000-0.034) ng/mL Total Protein 7.6 (6.3-8.2) g/dL Albumin 4.3 (3.5-5.0) g/dL 01/30/21 Range/Units 21:23 WBC (3.8-10.6) k/uL RBC (3.80-5.40) m/uL Hgb (11.4-16.0) gm/dL Hct (34.0-46.0) % MCV (80.0-100.0) fL MCH (25.0-35.0) pg MCHC (31.0-37.0) g/dL RDW (11.5-15.5) % Plt Count (150-450) k/uL MPV Neutrophils % % Lymphocytes % % Monocytes % % Eosinophils % % Basophils % % Neutrophils # (1.3-7.7) k/uL Lymphocytes # (1.0-4.8) k/uL Monocytes # (0-1.0) k/uL Eosinophils # (0-0.7) k/uL Basophils # (0-0.2) k/uL PT (9.0-12.0) sec INR (<1.2) APTT (22.0-30.0) sec Sodium (137-145) mmol/L Potassium (3.5-5.1) mmol/L Chloride (98-107) mmol/L Carbon Dioxide (22-30) mmol/L Anion Gap mmol/L BUN (7-17) mg/dL Creatinine (0.52-1.04) mg/dL Est GFR (CKD-EPI)AfAm (>60 ml/min/1.73 sqM) Est GFR (CKD-EPI)NonAf (>60 ml/min/1.73 sqM) Glucose (74-99) mg/dL Calcium (8.4-10.2) mg/dL Magnesium (1.6-2.3) mg/dL Total Bilirubin (0.2-1.3) mg/dL AST (14-36) U/L ALT (4-34) U/L Alkaline Phosphatase (38-126) U/L Troponin I <0.012 (0.000-0.034) ng/mL Total Protein (6.3-8.2) g/dL Albumin (3.5-5.0) g/dL - EKG Data -: EKG Interpreted by N[place] EKG Comments: EKG obtained at 2137 shows normal sinus rhythm with a ventricular rate of 85, IL interval 196, QR restorationism 74, QT 364, QTC 433. No evidence of ST elevation or depression. Disposition Clinical Impression: Anxiety, Chest pain Disposition: HOME SELF-CARE Condition: Good Instructions (If sedation given, give patient instructions): Chest Pain (ED), Anxiety (ED) Additional Instructions: Up with her primary care physician for recheck in 1-2 days. Return to the emergency department for any new, worsening, or concerning symptoms. Prescriptions: LORazepam [Ativan] 1 mg PO DAILY 3 Days #3 tab Is patient prescribed a controlled substance at d/c from ED?: Yes When asked, does pt state using other controlled substances?: No If prescribed controlled substance>3 days was MAPS reviewed?: Prescribed <3 Days Referrals: Raysa England DO [Primary Care Provider] - 1-2 days Time of Disposition: 22:11
[2021-01-30 22:36] VITALS: BP 134/91; PULSE 97; TEMP 98
== END 2021-01-30 22:35 | disposition home or self-care (01) ==
LOC: EC 20:25
DX: R07.9 Chest pain, unspecified (principal); F41.0 Panic disorder [episodic paroxysmal anxiety]; J44.9 Chronic obstructive pulmonary disease, unspecified; K21.9 Gastro-esophageal reflux disease without esophagitis; I10 Essential (primary) hypertension; M19.90 Unspecified osteoarthritis, unspecified site; M06.9 Rheumatoid arthritis, unspecified; F31.9 Bipolar disorder, unspecified; Z79.51 Long term (current) use of inhaled steroids; Z79.899 Other long term (current) drug therapy
CPT/HCPCS: 36415; 71046; 80053; 83735; 84484; 85025; 85610; 85730; 93005; 99285

== ENCOUNTER 2021-07-04 11:59 | Emergency (ER) | payer OTHER ==
[2021-07-04 12:08] VITALS: BP 162/100; PULSE 85; RESP 20; TEMP 98.4
[2021-07-04] MEDS ORDERED: HYDROcodone/APAP 5-325MG 1 EACH TAB PO STA (12:36)
--- NOTE | 2021-07-04 12:59 | XR ---
Right knee HISTORY: Pain 3 views the right knee Bone mineralization, joint spaces and alignment are maintained. There is overlying artifact. No fract ure or dislocation. No evident joint effusion. IMPRESSION: No acute abnormality. Knee MRI may be of benefit.
--- NOTE | 2021-07-04 13:32 | US ---
EXAMINATION TYPE: US venous doppler duplex LE RT DATE OF EXAM: 07/04/2021 1:16 PM COMPARISON: NONE CLINICAL HISTORY: pain. SIDE PERFORMED: Right TECHNIQUE: The lower extremity deep venous system is examined utilizing real time linear array sonog geremias with graded compression, doppler sonography and color-flow sonography. Grayscale, color doppler, spectral doppler imaging performed of the deep veins of the lower extremiti es. VESSELS IMAGED: Common Femoral Vein Deep Femoral Vein Greater Saphenous Vein * Femoral Vein Popliteal Vein Small Saphenous Vein * Proximal Calf Veins (* superficial vessels) The right common femoral, superficial femoral, popliteal veins all compress normally, no abnormal lum inal echoes. Venous waveforms are normal. Right Leg: Negative for DVT IMPRESSION: There is no evident deep venous thrombosis within the right lower extremity from the lev el the knee centrally, follow-up as indicated.
--- NOTE | 2021-07-04 13:33 | ED ---
Lower Extremity Injury HPI - General Chief Complaint: Extremity Injury, Lower Stated Complaint: knee pain Time Seen by Provider: 07/04/21 12:21 Source: patient, RN notes reviewed Mode of arrival: wheelchair Limitations: no limitations - History of Present Illness Initial Comments: This is a 56-year-old female presents emergency Department chief complaint of right knee pain. She states she's been dealing with this since April when she slipped and fell on some ice. She states she is living in [place] at that time and states that her insurance was not covered down there so she did not present to be evaluated. Patient states she just got back from her other home states his presented here secondary to pain which is been ongoing this is not worsening pain and usual. She states it radiates up and down her leg from her right knee. She denies any bowel bladder incontinence or retention of saddle anesthesias. Patient's had a prior injury to her left knee and which she did see orthopedics on the past. - Related Data Home Medications Medication Instructions Recorded Confirmed Albuterol Nebulized [Ventolin 2.5 mg INHALATION RT-Q4H PRN 01/19/21 01/19/21 Nebulized] Cetirizine HCl [Zyrtec] 10 mg PO DAILY 01/19/21 01/19/21 Cyanocobalamin (Vitamin B-12) 1,000 mcg PO BID 01/19/21 01/19/21 [Vitamin B-12] Magnesium Oxide [Mag-Ox] 400 mg PO DAILY 01/19/21 01/19/21 Metoprolol Succinate [Toprol XL] 25 mg PO DAILY 01/19/21 01/19/21 Montelukast [Singulair] 10 mg PO HS 01/19/21 01/19/21 Multivitamins, Thera [Multivitamin 2 tab PO DAILY 01/19/21 01/19/21 (formulary)] Omeprazole 40 mg PO BID 01/19/21 01/19/21 Previous Rx's Medication Instructions Recorded LORazepam [Ativan] 1 mg PO DAILY 3 Days #3 tab 01/30/21 Allergies Allergy/AdvReac Type Severity Reaction Status Date / Time aspirin AdvReac Nausea & Verified 07/04/21 12:08 Vomiting ibuprofen [From Motrin] AdvReac Nausea & Verified 07/04/21 12:08 Vomiting Review of Systems ROS Statement: Those systems with pertinent positive or pertinent negative responses have been documented in the HPI. ROS Other: All systems not noted in ROS Statement are negative. Past Medical History Past Medical History: Asthma, COPD, GERD/Reflux, Hypertension, Osteoarthritis (OA), Rheumatoid Arthritis (RA) Additional Past Medical History / Comment(s): ABDOMINAL PAIN, carpal tunnel both hands, scolosis History of Any Multi-Drug Resistant Organisms: None Reported Past Surgical History: Bladder Surgery, Hysterectomy, Tubal Ligation Additional Past Surgical History / Comment(s): tumor 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 Past Anesthesia/Blood Transfusion Reactions: No Reported Reaction Additional Past Anesthesia/Blood Transfusion Reaction / Comment(s): unknown family hx Past Psychological History: Anxiety, Bipolar, Depression, Panic Disorder Smoking Status: Never smoker Past Alcohol Use History: None Reported Past Drug Use History: None Reported - Past Family History Mother Family Medical History: Cancer Additional Family Medical History / Comment(s): metastatic cancer Father Family Medical History: Dementia Additional Family Medical History / Comment(s): pacemaker, heart issues Sister(s) Additional Family Medical History / Comment(s): heart blockage General Exam Limitations: no limitations General appearance: alert, in no apparent distress Head exam: Present: atraumatic, normocephalic, normal inspection Eye exam: Present: normal appearance, PERRL, EOMI. Absent: scleral icterus, conjunctival injection, periorbital swelling ENT exam: Present: normal exam, normal oropharynx, mucous membranes moist Respiratory exam: Present: normal lung sounds bilaterally. Absent: respiratory distress, wheezes, rales, rhonchi, stridor Cardiovascular Exam: Present: regular rate, normal rhythm, normal heart sounds. Absent: systolic murmur, diastolic murmur, rubs, gallop, clicks Extremities exam: Present: other (Right knee patient reports diffuse tenderness with palpation, neurovascular intact there is no iris deformity no swelling unable to assess for laxity as patient reports to much discomfort.) Skin exam: Present: warm, dry, intact, normal color. Absent: rash Course Vital Signs 07/04/21 12:04 Temperature 98.4 F Pulse Rate 85 Respiratory 20 Rate Blood Pressure 162/100 O2 Sat by Pulse 99 Oximetry Medical Decision Making - Medical Decision Making Ultrasound was negative for acute abnormality, x-ray does not reveal any acute findings. Patient may follow up with orthopedics for MRI she has seen orthopedics associate in the past. Patient advised to follow-up return parameters were discussed. Disposition Clinical Impression: Right knee sprain Disposition: HOME SELF-CARE Condition: Stable Instructions (If sedation given, give patient instructions): Knee Sprain (ED) Additional Instructions: Please return to the Emergency Department if symptoms worsen or any other concerns. Is patient prescribed a controlled substance at d/c from ED?: No Referrals: Raysa England DO [Primary Care Provider] - 1-2 days Trey Stanley MD [STAFF PHYSICIAN] - 1-2 days Time of Disposition: 13:48
[2021-07-04] MEDS ORDERED: ACET/COD 300 MG/30 MG STARTER PACK 6 TAB BTL PO STA (13:47)
== END 2021-07-04 14:32 | disposition home or self-care (01) ==
LOC: EC 11:59
DX: S83.91XA Sprain of unspecified site of right knee, initial encounter (principal)
CPT/HCPCS: 99284

== ENCOUNTER → 2021-07-27 | Outpatient (CLI) | payer OTHER ==
--- NOTE | 2021-07-28 03:07 | MR ---
EXAMINATION TYPE: MR knee RT wo con DATE OF EXAM: 07/27/2021 COMPARISON: None HISTORY: Right knee pain S/P fall. Multiplanar multiecho imaging of the right knee without contrast. There is mild to moderate knee joint effusion. The anterior and posterior cruciate ligaments are inta ct. The lateral meniscus is intact. There is extensive increased signal in the posterior horn of the medial meniscus extending to the inferior surface. The collateral ligaments are intact. No evidence of a fracture. I see no bony destructive process. Brian wray is intact. IMPRESSION: Knee joint effusion. Complex extensive tear of the posterior horn of the medial meniscus. No evidence of ligamentous tear.
== END | disposition home or self-care (01) ==
LOC: RADMRIMAIN 15:49
PROVIDERS: ATTEND Orthopaedic Surgery
DX: S83.231A Complex tear of medial meniscus, current injury, right knee, initial encounter (principal); M25.461 Effusion, right knee; W19.XXXA Unspecified fall, initial encounter

== ENCOUNTER → 2021-08-17 | Outpatient (CLI) | payer OTHER ==
[2021-08-17 22:22] LABS: Basophils # (A) 0.05 X 10*3/uL (0.00-0.10); Basophils % (A) 0.6 %; Eosinophils # (A) 0.21 X 10*3/uL (0.04-0.35); Eosinophils % (A) 2.5 %; HCT 39.3 % (37.2-46.3); HGB 12.4 g/dL (12.0-15.0); Immature Grans, Automated 0.1 %; Lymphocytes # (A) 2.99 X 10*3/uL (0.90-5.00); Lymphocytes % (A) 35.3 %; MCH 28.1 pg (27.0-32.0); MCHC 31.6 g/dL (32.0-37.0); MCV 89.1 fL (80.0-97.0); Mean Platelet Volume 10.9 fL (9.5-12.2); Monocytes # (A) 0.75 X 10*3/uL (0.20-1.00); Monocytes % (A) 8.9 %; NRBC Per 100 WBC 0 /100 WBCS (0.0-0.0); Neutrophils # (A) 4.45 X 10*3/uL (1.80-7.70); Neutrophils % (A) 52.6 %; Platelet Count 342 X 10*3/uL (140-440); RBC 4.41 X 10*6/uL (4.10-5.20); WBC 8.46 X 10*3/uL (4.50-10.00)
[2021-08-17 22:34] LABS: African American GFR (CKD) 77.2 (60.0-200.0); Anion Gap 11.9 mmol/L (10.00-18.00); BUN/Creat Ratio 19.59 Ratio (12.00-20.00); Blood Urea Nitrogen 18.9 mg/dL (9.0-27.0); Calcium 9.5 mg/dL (8.7-10.3); Carbon Dioxide 26.6 mmol/L (20.0-27.5); Non-African American GFR(CKD) 66.6 (60.0-200.0); Potassium 3.9 mmol/L (3.5-5.5)
== END | disposition home or self-care (01) ==
LOC: LABPAT 16:02
PROVIDERS: ATTEND Orthopaedic Surgery
DX: Z01.812 Encounter for preprocedural laboratory examination (principal); M23.91 Unspecified internal derangement of right knee
CPT/HCPCS: 80048; 85025; 93005

== ENCOUNTER → 2021-08-26 | Day surgery (SDC) | payer OTHER ==
[2021-08-24 15:56] VITALS: BMI 35.8
--- NOTE | 2021-08-25 14:43 | HP ---
HISTORY AND PHYSICAL CHIEF COMPLAINT: Right knee pain. 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 She slipped and fell on some ice. She notes anterior and medial pain along with swelling and stiffness. She notes intermittent locking and buckling. She denies previous significant problems. She is using a walker. She notes she is significantly limited because of pain and giving way. PAST MEDICAL HISTORY: Significant for COPD, hypertension and anxiety. PAST SURGICAL HISTORY: Negative. CURRENT MEDICATIONS: Aspirin, antihypertensives, omeprazole and Tylenol. ALLERGIES: STEROIDS AND IBUPROFEN. FAMILY HISTORY: Significant for cancer. SOCIAL HISTORY: Negative for current tobacco or alcohol use. REVIEW OF SYSTEMS: Sixteen-point review of systems otherwise reviewed and is noncontributory. PHYSICAL EXAMINATION: On examination, the patient is approximately 5 feet 2 inches, 202 pounds of endomorphic habitus. HEENT exam is nonfocal. Neck is supple. She has painless passive motion of the right hip. Straight-leg raise is negative. Active motion of right knee: Minus 15 to 90 degrees of flexion. She has a moderate effusion. She is tender about the medial joint line. Collaterals are stable. Ca is negative. Noel's elicits medial pain. She has an antalgic gait pattern. Her distal neurovascular exam appears intact in the right lower extremity. MRI report right knee 07/27/2021 from [facility] shows evidence of a posterior medial meniscus meniscal tear. IMPRESSION: Internal derangement right knee with symptomatic medial meniscal tear. RECOMMENDATIONS: I talked to the patient at length regarding her condition along with treatment options. At this point she is quite symptomatic and limited because of pain related to her right knee after this acute injury. After thorough discussion, she opts to proceed with surgery. We will plan to proceed with arthroscopic evaluation with probable partial medial meniscectomy. Risks and benefits were discussed at length in layman's terms. MMODL / IJN: [id number] /
[~2021-08-26] MED LIST changes: +DEXAMETHASONE SOD PHOSPHATE 4 MG/ML 1 ML VIAL IV ONE; +EPINEPHrine (PF) 1 ML in SODIUM CHLORIDE 0.9% IRRIGATIO 3,000 ML IRRIGATION ONE; +HYDROcodone/APAP 5-325MG 1 EACH TAB ONE; +HYDROcodone/APAP 5-325MG 1 EACH TAB PO ONE; +HYDROmorphone 0.5 MG/0.5 ML SYRINGE IVP ONE; +HYDROmorphone 0.5 MG/0.5 ML SYRINGE IVP PRN; -LIDOCAINE 1% 20 ML VIAL (10MG/ML) FOR IV START INTRADERMA PRN; +LIDOCAINE 2% INJ 20 MG/ML (2 ML VIAL) ONE; +MEPERIDINE 50 MG/ML SYRINGE IVP ONE; +MIDAZOLAM 2 MG/2 ML VIAL ONE; +ONDANSETRON 4 MG/2 ML VIAL IVP ONE; +PROPOFOL 10 MG/ML 20 ML VIAL IV ONE; +fentaNYL (PF) 50 MCG/ML 2 ML AMP ONE
[2021-08-26 09:16] VITALS: RESP 16
--- NOTE | 2021-08-26 10:54 | P.OP ---
Date of Procedure: 08/26/21 Preoperative Diagnosis: Right knee internal derangement Postoperative Diagnosis: Right knee posterior medial meniscal tear/anterior lateral meniscal tear Procedure(s) Performed: Right knee arthroscopic partial medial meniscectomy/partial lateral meniscectomy Anesthesia: GAGANA Surgeon: Bandar Jacobson Estimated Blood Loss (ml): 10 Pathology: none sent Condition: stable Disposition: PACU Indications for Procedure: The patient's a 56-year-old female presents with progressive right knee pain and mechanical symptoms despite conservative measures. A discussion of the risks and benefits of operative intervention versus continued conservative measures was made with patient. She to proceed with surgery. Operative risks to include infection, neurovascular injury, development of blood clots, possible incomplete resolution of symptoms, possible worsening symptoms and need for subsequent procedures was discussed. Informed consent was obtained. Operative Findings: As below Description of Procedure: The patient was brought to the operating room, and after induction of general anesthesia examined the right knee. Collaterals were stable, Ca was negative, and posterior drawer was negative. The right lower extremity was prepped and draped in a normal fashion. A superior lateral portal was made through a 3 mm skin incision superior and lateral to the patella. This was used for outflow. A lateral portal was made through a 5 mm vertical skin incision lateral to the patella tendon above the joint line. Diagnostic arthroscopy was performed. On inspection of the medial compartment, a horizontal tear involving the posterior horn of the medial meniscus in the white-red junction was noted. This was not amenable to repair. This was debrided back to stable base with straight baskets and a motorized shaver. The remaining medial meniscus was stable and intact. Grade 2-3 chondral changes involving the distal lateral portion medial femoral condyle was noted. No loose cartilage fragments were noted. On inspection of the notch, the anterior cruciate ligament appeared to be intact. On inspection of the lateral compartment, and oblique tear involving the anterior one third of the lateral meniscus was noted. This was debrided back to stable base with a motorized shaver. The remaining lateral meniscus was stable and intact.. On inspection of the patellofemoral articulation, there was some chondral fibrillation however no loose chondral fragment.. The gutters were clear debris. The knee was then thoroughly irrigated. The portals were closed with Steri-Strips. A sterile dressing was applied in addition to a compression stocking. The patient was awoken from general anesthesia and transferred to recovery room in good condition. Blood loss was estimated at 10 mL. No complications were incurred.
[2021-08-26 11:23] VITALS: TEMP 96.9
[2021-08-26 12:23] VITALS: BP 127/72; PULSE 78
== END | disposition home or self-care (01) ==
LOC: OR 08:44
PROVIDERS: ATTEND Orthopaedic Surgery
DX: S83.241A Other tear of medial meniscus, current injury, right knee, initial encounter (principal); S83.281A Other tear of lateral meniscus, current injury, right knee, initial encounter; W00.0XXA Fall on same level due to ice and snow, initial encounter; I10 Essential (primary) hypertension; F41.9 Anxiety disorder, unspecified; J44.9 Chronic obstructive pulmonary disease, unspecified; K21.9 Gastro-esophageal reflux disease without esophagitis; Z97.2 Presence of dental prosthetic device (complete) (partial); Z90.710 Acquired absence of both cervix and uterus; Z98.890 Other specified postprocedural states; Z79.82 Long term (current) use of aspirin; Z79.899 Other long term (current) drug therapy; Z88.6 Allergy status to analgesic agent; Z88.8 Allergy status to other drugs, medicaments and biological substances
CPT/HCPCS: 29880; J2250; J1100; J2175; J0690; J2405; J0171; J3010; J2704; J1170; J2001

== ENCOUNTER 2021-09-12 14:40 | Emergency (ER) | payer OTHER ==
[2021-09-12 16:02] VITALS: PULSE 80
[2021-09-12] MEDS ORDERED: KETOROLAC 15 MG/ML 1 ML VIAL IVP STA (16:59)
[2021-09-12] MEDS ORDERED: diphenhydrAMINE 50 MG/ML 1 ML VIAL IVP STA (16:59)
[2021-09-12] MEDS ORDERED: SODIUM CHLORIDE 0.9% 1,000 ML IV STA (16:59)
[2021-09-12] MEDS ORDERED: METOCLOPRAMIDE 5 MG/ML 2 ML VIAL IVP STA (16:59)
--- NOTE | 2021-09-12 18:20 | CT ---
EXAMINATION TYPE: CT brain wo con CT DLP: 1129.4 mGycm, Automated exposure control for dose reduction was used. DATE OF EXAM: 09/12/2021 6:08 PM COMPARISON: MR brain 09/07/2017 and 05/02/2019. CLINICAL INDICATION:Female, 56 years old with history of headache, vision changes, hx of tumor, Heada ethel, vision changes, hx tumor. TECHNIQUE: Brain: Multiple axial CT images of the brain were obtained without IV contrast. FINDINGS: Brain: Extra-axial spaces: No abnormal extra-axial fluid collections. Ventricular system: Within normal limits Cerebral parenchyma: Redemonstration of asymmetric left pituitary adenoma or characterize on MRI 05/02. Unchanged focus of left frontal lobe white matter changes from prior MRI. No acute intraparenc hymal hemorrhage or mass effect. The sher-white junction is well differentiated. Cerebellum: Unremarkable. Mass effect: No evidence of midline shift. Intracranial vasculature: unremarkable Soft tissues: Normal. Calvarium/osseous structures: No depressed skull fracture. Paranasal sinuses and mastoid air cells: Mild scattered paranasal sinus disease. Visualized orbits: Orbital contents are intact. IMPRESSION: 1. No acute intracranial process. 2. Left sided pituitary macroadenoma which is better characterized on prior MRI. Consider follow MRI pituitary mass protocol for comparison for changes from 2019.
[2021-09-12 18:21] VITALS: BP 128/85; RESP 18
--- NOTE | 2021-09-12 19:47 | ED ---
General Adult HPI - General Chief complaint: Headache Stated complaint: 08/26 Surgery/Blurred Vision/Dizziness Time Seen by Provider: 09/12/21 16:43 Source: patient Mode of arrival: ambulatory Limitations: no limitations - History of Present Illness Initial comments: Patient is a 56-year-old female presenting with chief complaint of headache. Patient states that headache has been ongoing for the last 4 days. It is accompanied by vision blurring. Patient has a known history of pituitary adenoma, this was discovered in 2019 and she is unaware if there haven't been any changes to the mass. Patient admits to light sensitivity. Patient states that she had knee surgery on August 26, denies any lower extremity swelling or tenderness. Denies any chest pain, shortness of breath, lightheadedness, syncope, hearing changes, abdominal pain, nausea, vomiting, palpitations, hematochezia, melena, dysuria, hematuria, urgency, frequency, back pain, neck pain or stiffness. - Related Data Home Medications Medication Instructions Recorded Confirmed Albuterol Nebulized [Ventolin 2.5 mg INHALATION RT-QID PRN 01/19/21 09/12/21 Nebulized] Cetirizine HCl [Zyrtec] 10 mg PO DAILY 01/19/21 09/12/21 Magnesium Oxide [Mag-Ox] 400 mg PO HS 01/19/21 09/12/21 Metoprolol Succinate [Toprol XL] 25 mg PO DAILY 01/19/21 09/12/21 Omeprazole 40 mg PO BID 01/19/21 09/12/21 Aspirin [Adult Low Dose Aspirin EC] 81 mg PO DAILY 08/24/21 09/12/21 Albuterol Sulfate [Proair Hfa] 2 puff INHALATION RT-QID PRN 09/12/21 09/12/21 Diclofenac Sodium Gel [Voltaren 1 applic TOPICAL TID PRN 09/12/21 09/12/21 Gel] HYDROcodone/APAP 5-325MG [[place] 1 tab PO TID PRN 09/12/21 09/12/21 5-325] Allergies Allergy/AdvReac Type Severity Reaction Status Date / Time codeine Allergy Severe Itching Verified 09/12/21 19:23 [From Tylenol-Codeine #3] aspirin AdvReac Nausea & Verified 09/12/21 19:23 Vomiting ibuprofen [From Motrin] AdvReac Nausea & Verified 09/12/21 19:23 Vomiting Review of Systems ROS Statement: Those systems with pertinent positive or pertinent negative responses have been documented in the HPI. ROS Other: All systems not noted in ROS Statement are negative. Past Medical History Past Medical History: Asthma, COPD, GERD/Reflux, Hypertension, Osteoarthritis (OA), Rheumatoid Arthritis (RA) Additional Past Medical History / Comment(s): ABDOMINAL PAIN, carpal tunnel both hands, scolosis History of Any Multi-Drug Resistant Organisms: None Reported Past Surgical History: Bladder Surgery, Hysterectomy, Tubal Ligation Additional Past Surgical History / Comment(s): tumor 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 Past Anesthesia/Blood Transfusion Reactions: No Reported Reaction Additional Past Anesthesia/Blood Transfusion Reaction / Comment(s): unknown family hx Past Psychological History: Anxiety, Bipolar, Depression, Panic Disorder Smoking Status: Never smoker - Past Family History Mother Family Medical History: Cancer Additional Family Medical History / Comment(s): metastatic cancer Father Family Medical History: Dementia Additional Family Medical History / Comment(s): pacemaker, heart issues Sister(s) Additional Family Medical History / Comment(s): heart blockage General Exam Limitations: no limitations General appearance: alert, in no apparent distress Head exam: Present: atraumatic, normocephalic, normal inspection Eye exam: Present: normal appearance, EOMI. Absent: scleral icterus Neck exam: Present: normal inspection Respiratory exam: Present: normal lung sounds bilaterally. Absent: respiratory distress, wheezes, rales, rhonchi, stridor Cardiovascular Exam: Present: regular rate, normal rhythm, normal heart sounds. Absent: systolic murmur, diastolic murmur, rubs, gallop, clicks Extremities exam: Present: normal inspection Neurological exam: Present: alert, oriented X3, CN II-XII intact Expanded Patient oriented to: Present: person, place, time Speech: Present: fluid speech Cranial nerves: EOM's Intact: Normal, Tongue Deviation: Normal, Facial Sensation: Normal Cerebellar function: Finger to Nose: Normal Motor strength exam: RUE: 5, LUE: 5, RLE: 5, LLE: 5 Eye Response: (4) open spontaneously Motor Response: (6) obeys commands Verbal Response: (5) oriented Kirsty Total: 15 Psychiatric exam: Present: normal affect, normal mood Skin exam: Present: warm, dry, intact, normal color. Absent: rash Course Vital Signs 09/12/21 09/12/21 15:55 18:20 Pulse Rate 80 80 Respiratory 20 18 Rate Blood Pressure 143/106 128/85 O2 Sat by Pulse 98 100 Oximetry Medical Decision Making - Medical Decision Making Patient is a 56-year-old female presenting with chief complaint of headache. Headache is accompanied by blurring vision that is intermittent. Patient has a known history of pituitary mass discovered in 2019. On examination there are no focal neurological deficits, visual acuity is 20/40 bilaterally. Patient states that she has glasses that she is not wearing. CT of the brain shows no acute changes. Patient was given pain medication which stopped her headache. Before reassessment patient signed out AMA. Patient should follow-up with her PCP in one to 2 days. Report back to ER with any new or worsening symptoms. My attending is Dr. Henry. Disposition Clinical Impression: Headache Disposition: Left Against Medical Advice Condition: Good Instructions (If sedation given, give patient instructions): Acute Headache (ED) Additional Instructions: Follow-up with PCP in one to 2 days. Report back to ER if any new or worsening symptoms. Is patient prescribed a controlled substance at d/c from ED?: No Referrals: Raysa England DO [Primary Care Provider] - 1-2 days Time of Disposition: 19:46
== END 2021-09-12 19:41 | disposition left against medical advice (07) ==
LOC: EC 14:40
DX: R51.9 Headache, unspecified (principal); I10 Essential (primary) hypertension; J44.9 Chronic obstructive pulmonary disease, unspecified; K21.9 Gastro-esophageal reflux disease without esophagitis; M06.9 Rheumatoid arthritis, unspecified; F31.9 Bipolar disorder, unspecified; F41.9 Anxiety disorder, unspecified; Z79.51 Long term (current) use of inhaled steroids; Z79.82 Long term (current) use of aspirin; Z79.899 Other long term (current) drug therapy
CPT/HCPCS: 70450; 99284; 96374; 96375; 96361; J2765; J1885

== ENCOUNTER 2021-11-07 12:14 | Emergency (ER) | payer OTHER ==
[2021-11-07 12:20] VITALS: PULSE 99; RESP 18; TEMP 98.1
--- NOTE | 2021-11-07 12:35 | ED ---
Overdose HPI - General Chief Complaint: Overdose Stated Complaint: took wrong rx Time Seen by Provider: 11/07/21 12:21 Source: patient, RN notes reviewed Mode of arrival: ambulatory Limitations: no limitations - History of Present Illness Initial Comments: This a 56-year-old female presents emergency Department with chief complaint of accidental medication ingestion. Patient states she accidentally took her 's lisinopril 5 mg. Patient states she normally takes metoprolol and baby aspirin states that she thought she was taking a baby aspirin but accidentally took the lisinopril. She states 7 over 2 hours ago she is asymptomatic. Patient became very nervous and decided presents emergency from. Denies any chest pain shortness breath nausea vomiting diarrhea no syncopal episodes - Related Data Home Medications Medication Instructions Recorded Confirmed Albuterol Nebulized [Ventolin 2.5 mg INHALATION RT-QID PRN 01/19/21 09/12/21 Nebulized] Cetirizine HCl [Zyrtec] 10 mg PO DAILY 01/19/21 09/12/21 Magnesium Oxide [Mag-Ox] 400 mg PO HS 01/19/21 09/12/21 Metoprolol Succinate [Toprol XL] 25 mg PO DAILY 01/19/21 09/12/21 Omeprazole 40 mg PO BID 01/19/21 09/12/21 Aspirin [Adult Low Dose Aspirin EC] 81 mg PO DAILY 08/24/21 09/12/21 Albuterol Sulfate [Proair Hfa] 2 puff INHALATION RT-QID PRN 09/12/21 09/12/21 Diclofenac Sodium Gel [Voltaren 1 applic TOPICAL TID PRN 09/12/21 09/12/21 Gel] HYDROcodone/APAP 5-325MG [[place] 1 tab PO TID PRN 09/12/21 09/12/21 5-325] Allergies Allergy/AdvReac Type Severity Reaction Status Date / Time codeine Allergy Severe Itching Verified 11/07/21 12:20 [From Tylenol-Codeine #3] aspirin AdvReac Nausea & Verified 11/07/21 12:20 Vomiting ibuprofen [From Motrin] AdvReac Nausea & Verified 11/07/21 12:20 Vomiting Review of Systems ROS Statement: Those systems with pertinent positive or pertinent negative responses have been documented in the HPI. ROS Other: All systems not noted in ROS Statement are negative. Past Medical History Past Medical History: Asthma, COPD, GERD/Reflux, Hypertension, Osteoarthritis (OA), Rheumatoid Arthritis (RA) Additional Past Medical History / Comment(s): ABDOMINAL PAIN, carpal tunnel both hands, scolosis History of Any Multi-Drug Resistant Organisms: None Reported Past Surgical History: Bladder Surgery, Hysterectomy, Tubal Ligation Additional Past Surgical History / Comment(s): tumor 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 Past Anesthesia/Blood Transfusion Reactions: No Reported Reaction Additional Past Anesthesia/Blood Transfusion Reaction / Comment(s): unknown family hx Past Psychological History: Anxiety, Bipolar, Depression, Panic Disorder Smoking Status: Never smoker - Past Family History Mother Family Medical History: Cancer Additional Family Medical History / Comment(s): metastatic cancer Father Family Medical History: Dementia Additional Family Medical History / Comment(s): pacemaker, heart issues Sister(s) Additional Family Medical History / Comment(s): heart blockage General Exam Limitations: no limitations General appearance: alert, in no apparent distress Head exam: Present: atraumatic, normocephalic, normal inspection Eye exam: Present: normal appearance, PERRL, EOMI. Absent: scleral icterus, conjunctival injection, periorbital swelling ENT exam: Present: normal exam, normal oropharynx, mucous membranes moist Neck exam: Present: normal inspection, full ROM. Absent: tenderness, mening ismus, lymphadenopathy Respiratory exam: Present: normal lung sounds bilaterally. Absent: respiratory distress, wheezes, rales, rhonchi, stridor Cardiovascular Exam: Present: regular rate, normal rhythm, normal heart sounds. Absent: systolic murmur, diastolic murmur, rubs, gallop, clicks Course Vital Signs 11/07/21 11/07/21 12:16 12:39 Temperature 98.1 F Pulse Rate 99 Respiratory 18 Rate Blood Pressure 154/89 146/98 O2 Sat by Pulse 99 Oximetry Medical Decision Making - Medical Decision Making Patient's blood pressure within normal limits she is asymptomatic will be discharged in stable condition. Return parameters were discussed. Disposition Clinical Impression: Accidental drug ingestion Disposition: HOME SELF-CARE Condition: Stable Instructions (If sedation given, give patient instructions): Lisinopril (By mouth) Additional Instructions: Please return to the Emergency Department if symptoms worsen or any other concerns. Is patient prescribed a controlled substance at d/c from ED?: No Referrals: Raysa England DO [Primary Care Provider] - 1-2 days Time of Disposition: 12:35
[2021-11-07 12:40] VITALS: BP 146/98
== END 2021-11-07 12:59 | disposition home or self-care (01) ==
LOC: EC 12:14
DX: T50.991A Poisoning by other drugs, medicaments and biological substances, accidental (unintentional), initial encounter (principal); J45.909 Unspecified asthma, uncomplicated; K21.9 Gastro-esophageal reflux disease without esophagitis; J44.9 Chronic obstructive pulmonary disease, unspecified; I10 Essential (primary) hypertension; M19.90 Unspecified osteoarthritis, unspecified site; M06.9 Rheumatoid arthritis, unspecified; F31.9 Bipolar disorder, unspecified; F41.9 Anxiety disorder, unspecified; Z88.5 Allergy status to narcotic agent; Z88.6 Allergy status to analgesic agent; Z79.51 Long term (current) use of inhaled steroids; Z79.899 Other long term (current) drug therapy
CPT/HCPCS: 99283

== ENCOUNTER → 2021-11-14 | Outpatient (CLI) | payer OTHER ==
--- NOTE | 2021-11-14 16:27 | USB ---
Patient History: Menarche at age 12. First Full-Term at age 19. Left ovary removed at age 49. Right ovary removed at age 49. Hysterectomy at age 49. Postmenopausal. Patient has history of breast feeding. 01/31/2019, Benign Core Biopsy on the left side. Sister had breast cancer, age 52. Risk Values: Kaur 5 year model risk: 2.7%. NCI Lifetime model risk: 19.0%. Prior Study Comparison: 11/27/2013 Bilateral Screening Mammogram, [facility]. 12/18/2018 Bilateral Diagnostic Mammogram, [facility]. 01/31/2019 Left Diagnostic Mammogram, [facility]. Findings: The lower outer quadrant of the left breast, the lower inner quadrant of the left breast and the retroareolar of both breasts were scanned. Targeted scanning right breast subareolar and periareolar region shows extensive ductal ectasia. No suspicious solid or cystic lesion. Additional left breast ultrasound. The inferior half of the left breast was inadvertently scanned and shows ductal ectasia throughout. No solid or cystic lesion. Scanning of the superior half is recommended. Patient will return for additional scan at no charge. Overall Assessment: Incomplete: need additional imaging evaluation, BI-RAD 0 Management: Diagnostic Breast Ultrasound of the left breast. For scanning of the superior half, 9:00 to 3:00. If no abnormality is seen, a precautionary six-month follow-up diagnostic left breast mammogram can be performed. Electronically signed and approved by: Bib Kelly M.D. Radiologist
--- NOTE | 2021-11-14 17:02 | MM ---
Reason for Exam: Hx of benign breast biopsy. Last mammogram was performed 2 year(s) and 11 month(s) ago. Indicated Problems: Non-bloody discharge of both sides (White) for 10 Year(s). Patient History: Menarche at age 12. First Full-Term at age 19. Left ovary removed at age 49. Right ovary removed at age 49. Hysterectomy at age 49. Postmenopausal. Patient has history of breast feeding. 01/31/2019, Benign Core Biopsy on the left side. Sister had breast cancer, age 52. Risk Values: Kaur 5 year model risk: 2.7%. NCI Lifetime model risk: 19.0%. Prior Study Comparison: 11/27/2013 Bilateral Screening Mammogram, [facility]. 12/18/2018 Bilateral Diagnostic Mammogram, [facility]. 01/31/2019 Left Diagnostic Mammogram, [facility]. Tissue Density: The breast tissue is heterogeneously dense. This may lower the sensitivity of mammography. Findings: Analyzed By CAD. Subareolar nodularity on the right appears more defined. Further ultrasound evaluation recommended. Nodular asymmetric density anterior left cc view does not persist on additional spot compression. There is an asymmetric density superiorly left MLO view partially disperses. Superimposition shadow is suspected. Given the dense tissue background, further ultrasound evaluation is recommended. Overall Assessment: Incomplete: need additional imaging evaluation, BI-RAD 0 Management: Diagnostic Breast Ultrasound of both breasts. Targeted subareolar right breast and targeted superior half left breast. Electronically signed and approved by: Bib Kelly M.D. Radiologist
== END | disposition home or self-care (01) ==
LOC: RADMAMWWP 14:17
PROVIDERS: ATTEND Family Medicine
DX: Z12.31 Encounter for screening mammogram for malignant neoplasm of breast (principal); R92.8 Other abnormal and inconclusive findings on diagnostic imaging of breast; Z78.0 Asymptomatic menopausal state; Z80.3 Family history of malignant neoplasm of breast
CPT/HCPCS: 77066

== ENCOUNTER → 2021-11-15 | Outpatient (CLI) | payer OTHER ==
--- NOTE | 2021-11-15 16:28 | MR ---
EXAMINATION TYPE: MR lumbar spine wo con DATE OF EXAM: 11/15/2021 COMPARISON: CT abdomen pelvis 02/21/2017 HISTORY: Lumbar stenosis without neurogenic claudication, Lumbar pain into amy legs TECHNIQUE: Multiplanar, multisequence images of the lumbar spine were acquired without IV contrast. FINDINGS: L1-L2: Disc bulging with facet joint arthropathy result in mild effacement of the anterior thecal sac . There is mild to moderate right neural foraminal stenosis. The left neural foramen is patent.. L2-L3: Normal disc appearance without desiccation. No herniation, protrusion or disc bulging. No ca nal stenosis is present. Foramina are patent bilaterally. L3-L4: Normal disc appearance without desiccation. No herniation, protrusion or disc bulging. No ca nal stenosis is present. Facet joint arthropathy with mild bilateral neural foramen stenosis. L4-L5: Grade 1 anterolisthesis of L4 and L5 at this level results in disc uncovering and with facet j oint arthropathy, result in to moderate to severe spinal canal stenosis. The neural foramen are moder ately narrowed bilaterally. L5-S1: Mild disc bulging with facet joint arthropathy result in no significant spinal canal stenosis there is moderate to severe left and mild right neural foraminal stenosis. Lumbar segments are intact. No paraspinal masses are identified. Conus medullaris has a normal appe arance. IMPRESSION: 1. Grade 1 anterolisthesis of L4 and L5 with disc uncovering and facet joint arthropathy result in m oderate to severe spinal canal stenosis and moderate bilateral neural foraminal stenosis. 2. L5-S1 Facet joint arthropathy result in moderate to severe left neural foraminal stenosis.
== END | disposition home or self-care (01) ==
LOC: RADMRIMAIN 13:01
PROVIDERS: ATTEND Nurse Practitioner Family
DX: M47.817 Spondylosis without myelopathy or radiculopathy, lumbosacral region (principal); M51.27 Other intervertebral disc displacement, lumbosacral region; M43.16 Spondylolisthesis, lumbar region; M48.062 Spinal stenosis, lumbar region with neurogenic claudication; M99.74 Connective tissue and disc stenosis of intervertebral foramina of sacral region
CPT/HCPCS: 72148

== ENCOUNTER 2021-12-13 06:30 | Day surgery (SDC) | payer OTHER ==
[2021-12-12 10:33] VITALS: BMI 38.9
[2021-12-13] MEDS ORDERED: SODIUM CHLORIDE 0.9% 500 ML 500 ML IV ONE (06:32)
[2021-12-13 06:52] VITALS: RESP 16; TEMP 98.2
[2021-12-13] MEDS ORDERED: fentaNYL (PF) 50 MCG/ML 2 ML AMP ONE (07:23)
[2021-12-13] MEDS: BENZOCAINE SPRAY 1 CAN TOPICAL ONE ×2 (07:27→07:29)
[2021-12-13] MEDS ORDERED: MIDAZOLAM 2 MG/2 ML VIAL IV ONE (07:30)
[2021-12-13 10:05] VITALS: BP 119/81; PULSE 71
--- NOTE | 2021-12-14 06:14 | ECHOT ---
TRANSESOPHAGEAL ECHOCARDIOGRAM INDICATIONS: CVA, rule out cardiac source of thromboembolic phenomenon. PROCEDURE NOTE: After obtaining informed consent, transesophageal echocardiogram was performed in left lateral position using an Omniplane probe. Local and IV sedation were obtained using Xylocaine spray and 2 mg of Versed. The patient tolerated the procedure well without any obvious immediate complications. FINDINGS: 1. There is no intracardiac thrombus within the left atrial appendage, left atrium, right atrium, or right ventricle. 2. Left ventricle has normal size and systolic function. 3. Interatrial septum, there is no evidence of xccs-hp-dwadz shunt by color-flow Doppler or pawop-yb-gbzz shunt by agitated saline contrast study. 4. Mitral valve appears anatomically normal. There is ukyg-ll-jsosynsx central mitral regurgitation noted. 5. There is mild tricuspid regurgitation noted. 6. Aortic valve is a 3-leaflet valve. There is no evidence of aortic stenosis or regurgitation. 7. Aorta measures within normal limits. CONCLUSIONS: 1. No intracardiac source for thromboembolic cerebrovascular accident. 2. Uuav-cd-juoajdws central mitral regurgitation. MMODL / IJN: [id number] /
== END 2021-12-13 08:36 | disposition home or self-care (01) ==
LOC: CATHCVL 06:30
PROVIDERS: ATTEND Internal Medicine Cardiovascular Disease
DX: I08.1 Rheumatic disorders of both mitral and tricuspid valves (principal); Z86.73 Personal history of transient ischemic attack (TIA), and cerebral infarction without residual deficits; I10 Essential (primary) hypertension; E78.2 Mixed hyperlipidemia; Z79.02 Long term (current) use of antithrombotics/antiplatelets; Z79.899 Other long term (current) drug therapy
CPT/HCPCS: 93312; 93320; 93325; J2250

== ENCOUNTER → 2021-12-19 | Outpatient (CLI) | payer OTHER ==
[2021-12-19 13:18] VITALS: BP 143/90; PULSE 70; RESP 18; TEMP 98.6
--- NOTE | 2021-12-19 14:52 | P.PAINPG ---
PQRS Measure Charge Sheet Comment: HISTORY OF PRESENT ILLNESS: 56 yr old female as a referral from [facility] presents today w severe and chronic LBP secondary to DDD, spondylosis and facet arthropathy without myelopathy for evaluation. Pt states her LBP L>R has been going on for years, is 7/10 in intensity, constant, tight/ burning in character w shooting down LLE. Pain is provoked by standing/ bending for periods of 10 min or more folding clothes. Pt can not afford topicals. Pain is alleviated w laying supine, repositioning and rest. PMH: Asthma, COPD, Eye Disorder, GERD, Hypertension, OA, RA, Syncope PSH: BL CTS, Ríos's Esophagus, Hiatal Hernia, BL Cataracts, Bladder Mesh Surgery, Hysterectomy, R Knee Arthroscopy, Tubal Ligation, EGD/ Colonoscopy, Prolactinoma SH: Never smoker, No ETOH abuse, No illicit drug use. FH: Mo- Metastatic CA.Fa- Dementia/ Pacemaker. Sister- CAD. All: See list Meds: See list REVIEW OF ORGAN SYSTEMS: CONSTITUTIONAL: No fevers or chills. No recent weight loss. NEUROLOGICAL: + numbness and tingling along the distal extremities. No seizure disorders or headaches. MUSCULOSKELETAL: + pain PSYCHIATRIC: Denies current depression or suicidal thoughts. Physical Examinations : Constitutional : Cooperative , not in acute distress . Neurologic : Cranial nerve II to XII intact. No focal neurological deficits. Psychiatric : alert & oriented x 3. Matching mood & appropriate affect. Judgment & insight intact. Musculoskeletal : Cervical Spine Motor strength in the deltoid and biceps: Normal right side. Normal Left side Motor strength biceps and the wrist extensors: Normal right side . Normal left side Motor strength in the triceps muscle: Normal right side. Normal left side Deep tendon reflexes: Normal at the biceps. Normal at Brachioradialis. Normal at triceps Vertebral body tenderness to deep palpation over Cervical facet loading test: positive bilaterally Spurling test: positive bilaterally Neck distraction test: positive bilaterally Radha sign: positive bilaterally Lumbar spine Motor strength lower extremities ,thigh and legs 5/5 Right side , 5/5 Left side Deep tendon reflexes : Normal Knee Jerk. Normal Ankle Jerk Vertebral body tenderness over L5 Lumbar facet Loading Test: positive Right / positive Left Range of motion of the lumbar spine Flexion 30 degrees, extension 10 degrees Straight Leg Raise test: Left/ Right positive at degree Snow test: positive right / positive left. Severe tenderness over the Sacroiliac joint on the Right / Left sides Gaenslen test: positive bilaterally Seated flexion test: positive bilaterally. Sacral spine : Severe tenderness over the Sacroiliac joint: right side / left side Range of motion: Flexion of the lumbar spine <60 degrees Range of motion: Extension of the lumbar spine <20 degrees Gaenslen's Test positive Sae's Test positive Snow test: positive right side / left side Thigh Thrust Test Sacral Thrust Test Imaging: MRI without contrast of the lumbar spine from 11/15/21 reviewed Assessment/ Plan : Lumbar DDD, Lumbar Spondylosis Recommendation of RAINA L5-S1 #1. May need a series of injections, up to 3 within a 6 mo period, for optimal pain relief. Risks, benefits of procedure discussed and patient verbalized understanding. Admitst o aspirin or anti- coagulant use or medical history of diabetes. Protocol for discontinuation/ continuation of medications mayela procedure discussed. Fill [place] 5/325mg #18 NR. Use, side effects and adverse reactions discussed. Safe storage. Pt acknowledged understanding. All questions answered. I have spent greater than 30 minutes on patient care today. Dr Hightower was available by phone for the evaluation of this patient. The time was used to review the medical records including relevant urine studies and Prescription history (MAPs), review of the available imaging, evaluation and examination of the patient, coordination of care with the medical staff and if applicable referring physicians, as well as creation of the medical record PQRS Narrative: Smoking Status Never smoker Home Medications: Ambulatory Orders Cetirizine HCl [Zyrtec] 10 mg PO DAILY 01/19/21 Magnesium Oxide [Mag-Ox] 400 mg PO DAILY 01/19/21 Metoprolol Succinate [Toprol XL] 25 mg PO DAILY 01/19/21 Omeprazole 40 mg PO BID 01/19/21 Atorvastatin [Lipitor] 40 mg PO HS #30 tab 11/22/21 Clopidogrel [Plavix] 75 mg PO DAILY #30 tablet 11/22/21 Controlled Substance Measures - Controlled Substance Measures Is patient prescribed a controlled substance at discharge?: Yes When asked, does pt state using other controlled substances?: Yes If prescribed controlled substance>3 days was MAPS reviewed?: No If Rx opioid, was Start Talking consent form obtained?: Yes If opioid is for acute pain is fill amount 7 days or less?: Yes Was information provided regarding opioid addiction?: Yes
== END ==
LOC: PNWHC3 10:24
PROVIDERS: ATTEND Specialist
DX: M48.062 Spinal stenosis, lumbar region with neurogenic claudication (principal); M51.16 Intervertebral disc disorders with radiculopathy, lumbar region; M47.26 Other spondylosis with radiculopathy, lumbar region; J44.9 Chronic obstructive pulmonary disease, unspecified; I10 Essential (primary) hypertension; M19.90 Unspecified osteoarthritis, unspecified site; M06.9 Rheumatoid arthritis, unspecified; E11.9 Type 2 diabetes mellitus without complications; Z88.5 Allergy status to narcotic agent; Z88.6 Allergy status to analgesic agent
CPT/HCPCS: 99211